=== PATIENT | male | born 2000 | race Caucasian/White ===

== ENCOUNTER 2019-01-02 19:32 | Observation (INO) | payer OTHER ==
--- NOTE | 2019-01-02 19:56 | ED ---
Palpitations / Dysrhythmia - HPI Summary HPI Summary: 18 year old F presenting to [facility] accompanied by 2 female companions with a chief complaint of fast heart rate since 1.5 hours ago while sitting at a presentation. Patient states it feels uncomfortable. Patient denies pain, shortness of breath, vomiting, swelling in bilateral lower extremities, fever. Patient reports chills that started 1 hour ago. Patient states one episode of diarrhea. Patient states he thinks he has IBS. The patient rates the pain 0/10 in severity. Symptoms aggravated by nothing. Symptoms alleviated by nothing. Patient states he had 2 cups of coffee this morning which is normal for him and drank plenty of water today. Patient denies any anxiety provoking situations today. Patient denies recent diet changes, recent travel, long car/plane rides, weight changes, thinning of his hair. 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 Medications reviewed. Allergies noted. - History of Current Complaint Chief Complaint: EDDysrhythmPalp Time Seen by Provider: 01/02/19 19:49 Hx Obtained From: Patient Onset/Duration: Lasting Hours - 1.5, Still Present Timing: Constant Severity Currently: None Character: Fast Aggravating: Nothing Alleviating: Nothing - Allergy/Home Medications Allergies/Adverse Reactions: Allergies Allergy/AdvReac Type Severity Reaction Status Date / Time No Known Allergies Allergy Verified 01/02/19 19:38 Home Medications: Home Medications NK [No Home Medications Reported] 01/02/19 [History Confirmed 01/02/19] PMH/Surg Hx/FS Hx/Imm Hx Endocrine/Hematology History: Denies: Hx Diabetes Infectious Disease History: No Infectious Disease History: Denies: Traveled Outside the [place] in Last 30 Days Review of Systems Positive: Chills. Negative: Fever Positive: Other - fast heart rate Negative: Shortness Of Breath Positive: Diarrhea - x1. Negative: Vomiting Musculoskeletal: Negative - swelling in the bilateral lower extremities All Other Systems Reviewed And Are Negative: Yes Physical Exam - Summary Physical Exam Summary: Constitutional: Well-developed, Well-nourished, Alert. (-) Distressed Skin: Warm, Dry HENT: Normocephalic; Atraumatic Eyes: Conjunctiva normal Neck: Musculoskeletal ROM normal neck. (-) JVD, (-) Stridor, (-) Tracheal deviation Cardio: Rhythm regular, tachycardic, Heart sounds normal; Intact distal pulses; The pedal pulses are 2+ and symmetric. Radial pulses are 2+ and symmetric. (-) Murmur Pulmonary/Chest wall: Effort normal. (-) Respiratory distress, (-) Wheezes, (-) Rales Abd: Soft, (-) tenderness, (-) Distension, (-) Guarding, (-) Rebound Musculoskeletal: (-) Edema Lymph: (-) Cervical adenopathy Neuro: Alert, Oriented x3 Psych: Mood and affect Normal Triage Information Reviewed: Yes Vital Signs On Initial Exam: Initial Vitals Temp Pulse Resp BP Pulse Ox 99.2 F 137 18 147/105 100 01/02/19 19:34 01/02/19 19:34 01/02/19 19:34 01/02/19 19:34 01/02/19 19:34 Vital Signs Reviewed: Yes Diagnostics - Vital Signs Vital Signs Temp Pulse Resp BP Pulse Ox 01/02/19 19:34 99.2 F 137 18 147/105 100 - Laboratory Result Diagrams: 01/02/19 20:10 01/02/19 20:10 Lab Statement: Any lab studies that have been ordered have been reviewed, and results considered in the medical decision making process. - EKG 1942 Cardiac Rate: Tachycardia - 127 BPM EKG Rhythm: Sinus Tachycardia Re-Evaluation - Re-Evaluation First Eval Re-Evaluation Time: 21:05 Comment: patient is still tachycardic, HR in the 120s. he is almost done with 1 L fluids. still waiting for TSH. will order second liter of fluids Course/Dx - Course Course Of Treatment: Patient is here with unexplained tachycardia. Patient felt palpitations also meaning lecture at school. Patient had a CBC which showed no anemia, normal TSH, normal electrolytes, negative troponin, negative d -dimer, negative lactate. Patient had negative UDS for drug intoxication. Patient's EKG showed sinus tachycardia with no improvements after 2 L of IV fluids. Cardio was consultative help perform an echocardiogram the morning. - Diagnoses Provider Diagnoses: Tachycardia - Physician Notifications Discussed Care Of Patient With: Nidhi Fishman Time Discussed With Above Provider: 21:48 Instructed by Provider To: Other - Dr. Fishman, cardiology, recommends checking urine drug screen and states it could be pheochromocytoma. She states that patient does not need admission if he continues to be asymptomatic. Spoke with Dr. Villanueva, hospitalist, at 23:52, who agrees to admit patient. Discharge ED - Sign-Out/Discharge Documenting (check all that apply): Patient Departure - Admit Patient Received Moderate/Deep Sedation with Procedure: No - Discharge Plan Condition: Stable Disposition: ADMITTED TO [facility] - Billing Disposition and Condition Condition: STABLE Disposition: Admitted to [facility] - Attestation Statements Document Initiated by Carmelitae: Yes Documenting Scribe: Juju Alberts Provider For Whom Sridhar is Documenting (Include Credential): Matt Jasso MD Scribe Attestation: IJuju, scribed for Matt Jasso MD on 01/03/19 at 0731. Scribe Documentation Reviewed: Yes Provider Attestation: The documentation as recorded by the scribeJuju accurately reflects the service I personally performed and the decisions made by me, Matt Jasso MD Status of Scribe Document: Viewed
[2019-01-02] MEDS ORDERED: NS 0.9% 1000 ML** 1,000 ML IV ONE ×2 (19:57→21:05)
[2019-01-02 20:17] LABS: ABS Eosinophils 0.1 10^3/ul (0-0.6); ABS Lymphocytes 0.9 10^3/ul (1.0-4.8); ABS Monocytes 0.5 10^3/ul (0-0.8); ABS Neutrophils 7.7 10^3/ul (1.5-7.7); Eosinophil % 0.6 %; Hematocrit 43 % (42-52); Hemoglobin 15.4 g/dL (14.0-18.0); Lymphocyte % 10.3 %; Mean Corpuscular HGB Conc 36 g/dL (31-36); Mean Corpuscular Hemoglobin 30 pg (27-31); Mean Corpuscular Volume 86 fL (80-94); Nucleated Red Blood Cells % 0.2; Platelet Count 249 10^3/uL (150-450); Red Blood Count 5.06 10^6 /uL (4.18-5.48); Red Cell Distribution Width 13 % (10-15); White Blood Count 9.2 10^3/uL (3.5-10.8)
[2019-01-02 20:34] LABS: Albumin 4.9 g/dL (3.2-5.2); Albumin/Globulin Ratio 1.8 (1-3); BUN/Creatinine Ratio 14.6 (8-20); Calcium 9.7 mg/dL (8.6-10.3); EGFR African American 133.2 (>60); EGFR Non-African American 110.1 (>60); Globulin 2.8 g/dL (2-4); Magnesium 1.9 mg/dL (1.9-2.7); Potassium 3.2 mmol/L (3.5-5.0); Total Bilirubin 0.5 mg/dL (0.2-1.0); Total Protein 7.7 g/dL (6.4-8.9)
[2019-01-02 21:06] LABS: TSH (Thyroid Stimulating Horm) 1.53 mcIU/mL (0.34-5.60)
[2019-01-02 22:54] LABS: Urine Appearance Clear; Urine Bilirubin Negative (Negative); Urine Blood Negative (Negative); Urine Color Colorless; Urine Glucose Negative (Negative); Urine Ketones Trace (Negative); Urine Nitrite Negative (Negative); Urine Protein Negative (Negative); Urine Specific Gravity 1.003 (1.010-1.030); Urine Urobilinogen Negative (Negative)
[2019-01-02 23:16] LABS: Urine Benzodiazepine Screen None Detected (None Detect); Urine Opiates Screen None Detected (None Detect)
[2019-01-03] MEDS: NS 0.9% 1000 ML** 1,000 ML IV SCH ×2 (01:50→03:15)
--- NOTE | 2019-01-03 03:19 | HP ---
ADMISSION HISTORY AND PHYSICAL: DATE OF ADMISSION: 01/03/19 CHIEF COMPLAINT: Palpitations. HISTORY OF PRESENT ILLNESS: This is a 18-year-old male with no past medical history, came in with palpitations. The patient stated that he was in his usual state of health when he had a meeting at [facility]. He was not nervous, but during the meeting all of a sudden, he started having palpitations , chills, and feeling a little lightheaded, so the friends who were present there, encouraged him to come to the ER. While in the ER, the patient was noted to be tachycardiac to 110 to 150s. He received 2 L of normal saline, but his tachycardia did not improve. The accounts receivable representative was consulted, Dr. Fishman, who suggested that the patient be admitted and observed overnight. The patient otherwise offers no chest pain. He states that he did have some burping sensation along with the palpitations. No shortness of breath, no nausea, vomiting. He did have an episode of loose bowel movement this morning, which he calls as his irritable bowel syndrome and he was noted to be persistently tachycardiac throughout the 5 hours that he was present in the ER before my evaluation. Even during my evaluation, the patient's heart rate was noted to be fluctuating anywhere from 104 to 110. PAST MEDICAL HISTORY: As mentioned, no past medical or surgical history. HOME MEDICATIONS: Currently not on any home medications. ALLERGIES: No known drug allergies. FAMILY HISTORY: Mom is in her 49 and dad is in his 50, otherwise healthy. Grandmother on mother's side had some lymphoma and . Grandfather on mother' s side was recently diagnosed with diabetes, but otherwise the rest of his grandparents were healthy. There was no history of any abnormal heart disease or early sudden cardiac in the family. REVIEW OF SYSTEMS: A 14-point review of systems did not reveal any new information other than what is mentioned in the HPI PHYSICAL EXAMINATION GENERAL: The patient is awake, alert, oriented x3, did not appear to be in any acute respiratory distress. The patient does have some marfanoid features. He is very tall and very skinny. VITAL SIGNS: In the ER, heart rate since arrival was noted to be anywhere from 130 to 109 on the vital signs. BP initially was elevated to as high as 161 systolic and diastolic as high as 124, but did improve to 123/93 during my evaluation. Respiration rate was 13, saturating 98% on room air. Temperature was documented at 99.2. HEAD AND NECK: Atraumatic, normocephalic. Neck is supple. No jugular venous distention LUNGS: Clear to auscultation bilaterally. No wheezing, rhonchi, or rales. HEART: S1, S2. Regular tachycardia . ABDOMEN: Soft, nontender, nondistended. EXTREMITIES: No cyanosis, clubbing, or edema. DIAGNOSTIC STUDIES/LAB DATA: CBC was unremarkable. D-dimer was less than 200. Comprehensive metabolic panel was unremarkable except for minimally decreased potassium at 3.2, glucose noted to be minimally elevated at 123. Magnesium was noted to be 1.9. Alkaline phosphatase minimally elevated at 108. Troponin was 0. Urinalysis showed low specific gravity, trace ketones, but otherwise clear. Urine drug screen was normal. EKG showed sinus tachycardia at 127 beats per minute with rate-induced ST depressions noted in the lateral lead. IMPRESSION: This is an 18-year-old gentleman here with persistent sinus tachycardia, now down to low 100s, which is much better than when he arrived at the 150s. Could be due to dehydration, but the etiology is still uncertain. Per accounts receivable representative, we will monitor the patient on telemetry. ASSESSMENT: 1. Persistent sinus tachycardia, unclear etiology. We will get an echocardiogram in the morning and we will consult Cardiology to evaluate the patient. Any further testing to rule out secondary causes such as pleochromocytoma could be considered if the patient did have any persistent blood pressure elevations with the tachycardia with the urine catecholamines, but at this point this is low in suspicion. The patient did state that he has been having tachycardia every time he visits his doctor's office, but was told that it is because he feels nervous around the doctors. 2. DVT prophylaxis. Encourage early ambulation. [id number]/[facility] #: [id number] MAY
[2019-01-03 07:28] LABS: ABS Lymphocytes 1.2 10^3/ul (1.0-4.8); ABS Monocytes 0.5 10^3/ul (0-0.8); ABS Neutrophils 4.8 10^3/ul (1.5-7.7); Eosinophil % 0.5 %; Hematocrit 43 % (42-52); Hemoglobin 14.8 g/dL (14.0-18.0); Lymphocyte % 18.1 %; Mean Corpuscular HGB Conc 34 g/dL (31-36); Mean Corpuscular Hemoglobin 30 pg (27-31); Mean Corpuscular Volume 87 fL (80-94); Mean Platelet Volume 8.4 fL (7.4-10.4); Platelet Count 231 10^3/uL (150-450); Red Blood Count 4.95 10^6 /uL (4.18-5.48); Red Cell Distribution Width 13 % (10-15); White Blood Count 6.6 10^3/uL (3.5-10.8)
[2019-01-03 07:49] LABS: BUN/Creatinine Ratio 9.5 (8-20); EGFR African American 164.9 (>60); EGFR Non-African American 136.3 (>60); Potassium 3.5 mmol/L (3.5-5.0)
--- NOTE | 2019-01-03 10:41 | ECHO ---
*[facility]* [place] [address] Fax #: [phone] Transthoracic Echocardiogram Patient: Dale Adler : 2000 Study Date: 01/03/2019 Age: 18 Gender: M HR: Height: 72 in /182.9 cm BSA: 1.83 m^2 Weight: 139.7 lb /63.5 kg BMI: 19 kg/m^2 *Size Maker: * Zoila Turcios [facility] *Referring Physician: * Orlando Villanueva *Reading Physician: * Yassine Jaime MD Indications: Abnormal EKG. Tachycardia. History: Tachycardia. Conclusions Summary: - Left ventricle: The cavity size is normal. Wall thickness is normal. Systolic function is normal. The estimated ejection fraction is 60-65%. Wall motion is normal; there are no regional wall motion abnormalities. - Right ventricle: The cavity size is normal. Systolic function is normal. - Left atrium: The atrium is normal in size. - Pericardium, extracardiac: There is no significant pericardial effusion. - No significant valvular abnormalities noted. Recommendations: None prior for comparison at time of interpretation Study data: Transthoracic echocardiogram. Procedure: Transthoracic echocardiography was performed. Image quality was good. Complete 2D, spectral Doppler, and color flow Doppler. Location: Bedside. Patient status: Inpatient. Patient room number: 444-01. Rhythm: Tachycardia. Findings Left ventricle: The cavity size is normal. Wall thickness is normal. Systolic function is normal. The estimated ejection fraction is 60-65%. Wall motion is normal; there are no regional wall motion abnormalities. Left ventricular diastolic function parameters are normal. Right ventricle: The cavity size is normal. The moderator band is in a normal position. Systolic function is normal. Left atrium: The atrium is normal in size. Right atrium: The atrium is normal in size. Mitral valve: The leaflets are mildly thickened. There is no evidence of stenosis. There is trace regurgitation. Aortic valve: The valve is trileaflet. The leaflets are normal thickness. There is no evidence of stenosis. There is no significant regurgitation. Tricuspid valve: The leaflets are normal thickness. There is no evidence of stenosis. There is physiologic regurgitation. Pulmonic valve: The leaflets are normal thickness. There is no evidence of stenosis. There is trace regurgitation. Aorta: Aortic root: The aortic root is appears normal. Ascending aorta: The ascending aorta is appears normal. Aortic arch: The aortic arch is appears normal. Pericardium: There is no significant pericardial effusion. Pulmonary arteries: The main pulmonary artery is normal-sized. Systolic pressure can not be accurately estimated. Systemic veins: Inferior vena cava: The vessel is normal in size. There is (>= 50%) respiratory change in the IVC dimension. Measurements Left ventricle Value Ref Aortic valve Value Ref JOYCE, LAX 4.2 cm 4.2 - 5.8 Eliot diam, ED 2.0 cm ---- ESD, LAX 3.0 cm 2.5 - 4.0 Peak v, S 1.25 m/sec ---- FS, LAX 28 % - 43 VTI, S 22.1 cm ---- PW, ED, LAX 0.9 cm 0.6 - 1.0 Mean grad, S 4.0 mm Hg ---- FS 28 % - 43 Peak grad, S 6.0 mm Hg ---- PW, ED 0.9 cm 0.6 - 1.0 LVOT/AV, VTI ratio 0.77 ---- PW/ID, ED 0.22 E', lat eliot, TDI 17.3 cm/sec >=10.0 Mitral valve Value Re f E/e', lat eliot, 5 Peak E 0.81 m/sec ---- TDI Peak A 0.73 m/sec ---- E', med eliot, TDI 13.6 cm/sec >=7.0 Decel time 143 ms -- -- E/e', med eliot, 6 Peak grad, D 2.6 mm Hg ---- TDI Peak E/A ratio 1.1 ---- E', avg, TDI 15.5 cm/sec E/e', avg, TDI 5 <=14 Pulmonic valve Value Re f Peak v, S 0.99 m/sec ---- LVOT Value Ref Peak grad, S 4.0 mm Hg ---- Peak nela, S 1.03 m/sec VTI, S 17.0 cm Aortic root Value Ref Mean grad, S 2 mm Hg Root diam 3.0 cm <3.2 Root max diam, ED 3.0 cm <3.2 Ventricular septum Value Ref IVS, ED 0.9 cm 0.6 - 1.0 Ascending aorta Value Ref AAo AP diam, S 3.0 cm ---- Right ventricle Value Ref JOYCE, LAX 2.7 cm Aortic arch Value Ref JOYCE minor ax, A4C (H) 3.6 cm 1.9 - 3.5 Arch diam 1.7 cm ---- mid Decending aorta Value Ref Left atrium Value Ref Isaak peak nela 1.31 m/sec ---- AP dim, ES (L) 2.80 cm 3.00 - 4.00 Inferior vena cava Value Ref ML dim, A4C 2.7 cm Diam 1.8 cm ---- SI dim, A4C 3.9 cm Vol/bsa, ES, 1-p (L) 9 ml/m^2 12 - 37 A4C Vol/bsa, ES, A/L 19 ml/m^2 16 - 34 Right atrium Value Ref SI dim, ES (L) 3.3 cm 3.4 - 5.3 ML dim, ES, A4C 2.6 cm 2.6 - 4.4 SI dim, ES, A4C (L) 3.3 cm 3.4 - 5.3 Estimated RAP 3 mm Hg Legend: (L) and (H) aldo values outside specified reference range. Prepared and electronically signed by Yassine Jaime MD 01/03/2019 10:40
--- NOTE | 2019-01-03 12:15 | CONSULT ---
Subjective Date of Service: 01/03/19 Interval History: Admission and consult Date: 01/03/19 CHIEF COMPLAINT: Palpitations Reason for consult: Sinus tachycardia HISTORY OF PRESENT ILLNESS: Mr. Adler is 18-year-old man admitted with palpitations found with persistent sinus tachycardia throughout the day and high normal when sleeping. His heart rate can go up to 140 bpm when someone walks in the room. His evaluations so far has been unrevealing as below. He has had issues with tachycardia and anxiety in the past but states he is not currently anxious. He denies any chest pain, dyspnea, or syncope. Patients BP has been high and K was initially low. PAST MEDICAL HISTORY: no past medical or surgical history. HOME MEDICATIONS: Currently not on any home medications. ALLERGIES: No known drug allergies. FAMILY HISTORY: Mom is in her 49 and dad is in his 50, otherwise healthy. Grandmother on mother's side had some lymphoma and . Grandfather on mother's side was recently diagnosed with diabetes, but otherwise the rest of his grandparents were healthy. There was no history of any abnormal heart disease or early sudden cardiac in the family. Soc Hx no tobacco, drug or excessive alcohol use. No excessive caffeine. 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 Medications Active Medications: Metoprolol Tartrate (Lopressor Tab*) 25 mg PO BID EULA Home Medications: NK [No Home Medications Reported] 01/02/19 [History Confirmed 01/02/19] Review of Systems - Measurements Intake and Output: Intake and Output Last 24 Hours 01/01/19 01/02/19 01/03/19 01/04/19 06:59 06:59 06:59 06:59 Intake Total 4991 Balance 4991 Weight 137 lb Intake: IV Fluids 4991 Oral 0 - Review of Systems Constitutional Symptoms: Negative: Weight Gain, Weight Loss, Weakness, Fatigue, Fever, Night Sweats Dermatology: Negative: Rash, Skin Lesions HEENT: Negative: Change in Hearing, Vertigo Eyes: Negative: Change in Vision, Double Vision Thyroid: Positive: Palpitations Negative: Radiation Exposure Pulmonary: Negative: Cough, Sputum, Hemoptysis, Wheezing, Respiratory Distress, Shortness of Breath, COPD Cardiology: Positive: Palpitations Negative: Chest Pain, Shortness of Breath, Swelling of Ankles, Peripheral Vascular Dis, Edema, Syncope, Claudication, Paroxysmal Nocturnal Dyspnea, Orthopnea Gastroenterology: Negative: Abdominal Pain, Nausea, Vomiting, Anorexia Genital - Urinary: Negative: Dysuria, Hematuria Musculoskeletal: Negative: Joint Pain, Joint Stiffness, Joint Deformities, Kyphoscoliosis, Other Endocrinology: Negative: Polydipsia, Polyuria Hematologic/Lymphatic: Negative: Use of Anticoagulant, Use of Antiplatelet Drugs Neurology: Negative: Change in Speech, Change in Sphincter Function, Hx of Stroke\\TIA, Hx Seizures Psychiatry: Negative: Unusual Anxiety, Suicidal Ideation Allergic/Immunologic: Negative: Hx HIV, Immunocompromise Review of Systems Statement: All other review of systems negative, unless stated above. Objective Vital Signs: Temp Pulse Resp BP Pulse Ox 99.0 F 124 20 143/82 100 01/03/19 07:34 01/03/19 07:34 01/03/19 07:34 01/03/19 07:34 01/03/19 07:34 Oxygen Devices in Use Now: None Appearance: nad, pleasant Ears/Nose/Mouth/Throat: Clear Oropharnyx Neck: NL Appearance and Movements; NL JVP, Trachea Midline Respiratory: Symmetrical Chest Expansion and Respiratory Effort, Clear to Auscultation Cardiovascular: NL Sounds; No Murmurs; No JVD, No Edema, - - tachyardic, regular Abdominal: NL Sounds; No Tenderness; No Distention Extremities: No Edema Skin: No Rash or Ulcers Neurological: Alert and Oriented x 3 Laboratory Results: 01/03/19 06:34 01/03/19 06:34 Total Bilirubin 0.50 mg/dL (0.2-1.0) 01/02/19 20:10 AST 18 U/L (13-39) 01/02/19 20:10 ALT 10 U/L (7-52) 01/02/19 20:10 Alkaline Phosphatase 107 U/L (34-104) H 01/02/19 20:10 Total Protein 7.7 g/dL (6.4-8.9) 01/02/19 20:10 Albumin 4.9 g/dL (3.2-5.2) 01/02/19 20:10 Globulin 2.8 g/dL (2-4) 01/02/19 20:10 Albumin/Globulin Ratio 1.8 (1-3) 01/02/19 20:10 TSH 1.53 mcIU/mL (0.34-5.60) 01/02/19 20:10 01/02/19 20:10 Troponin I 0.00 d-dimer normal tox screen normal Diagnostic Imaging: Transthoracic Echocardiogram Study Date: 01/03/2019 Summary: - Left ventricle: The cavity size is normal. Wall thickness is normal. Systolic function is normal. The estimated ejection fraction is 60-65%. Wall motion is normal; there are no regional wall motion abnormalities. - Right ventricle: The cavity size is normal. Systolic function is normal. - Left atrium: The atrium is normal in size. - Pericardium, extracardiac: There is no significant pericardial effusion. - No significant valvular abnormalities noted. EKG Data: ekg admission sinus tachycardia 127 bpm, otherwise unremarkable Assessment/Plan Tachycardia symptomatic, heart rate trends suggestive of physiologic sinus mechanism, possible anxiety component. I would like to check renin, aldosterone , plasma metanephrines (do not need to wait for results to discharge) and a chest x-ray (all ordered). Will start metoprolol 25 mg po bid (ordered), monitor and patient can be discharged later this afternoon. Will arrange cardiology follow up. If these studies are normal and patient remains symptomatic/tachycardia, will consider off-label ivabradine for "inappropriate" sinus tachycardia as an outpatient. Thank you for allowing me to participate in the cardiovascular care of this patient. Please do not hesitate to contact me with questions or concerns.
[2019-01-03] MEDS ORDERED: Metoprolol Tartrate TAB* 25 MG PO SCH (13:00)
[2019-01-03] MEDS ORDERED: NS 0.9% 250 ML* 250 ML IV SCH (13:00)
--- NOTE | 2019-01-03 16:29 | DS ---
DISCHARGE SUMMARY: DATE OF ADMISSION: 01/03/19 DATE OF DISCHARGE: 01/03/19 PRIMARY DIAGNOSES: 1. Sinus tachycardia. 2. Anxiety. 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 Please refer to the dictated history and physical for details, but zoila harkins was in his usual state of health and had a meeting at the [facility]. During the meeting, he started having palpitations, chills, feeling lightheaded and the patient in the ER was noted to b e tachycardic with a heart rate of 110 to 150s. The patient had 1 episode of diarrhea in the hospita l, however, has been having formed stools and had been afebrile through hospital stay. Denies any si ck contacts. The patient's heart rate was persistently elevated overnight. The patient was hydrated overnight to rule out dehydration, which could have triggered his physiologic sinus tach. With hydr ation, the patient's heart rate currently is improved and heart rate noted to be in the 90s. The pat ient also was monitored on telemetry overnight and the patient only noted to be in sinus tach with no evidence of ventricular arrhythmias or SVT, the patient had an echocardiogram done, which shows that his ejection fraction is in the 60% to 65% range, systolic function normal. Wall motion normal. No regional wall abnormalities. No significant valvular abnormalities noted. The patient was also seen in consult by Dr. Jaime and appreciate his input. He felt that the heart rate runs suggestive of p hysiologic sinus mechanism and possibly anxiety component. At this time, renin, aldosterone, plasma metanephrines have been drawn and are pending. The patient to follow up results of this with his pro vider at [employer] to rule out pheochromocytoma and hyperaldosteronism. The patient was started on met oprolol 25 mg p.o. b.i.d.. The patient tolerated his first dose well and the patient to continue his metoprolol to held with his symptoms. Per discussion with Dr. Jaime, if the patient remains sympto matic with his tachycardia and the studies come back normal, off-label use of Ivabradine for inapprop riate sinus tachycardia can also be considered, but this per discretion of Dr. Jaime as an outpatien t and the patient to follow up with him post discharge in 2 weeks. Vitals and labs noted to be stabl e at the time of discharge. The patient to be discharged later in the afternoon. PHYSICAL EXAMINATION: Vitals: At the time of discharge, temperature 99.5, pulse 114, respiratory ra te 20, oxygen saturation 100% on room air, blood pressure 151/86. HEENT: NCAT. Heart: S1, S2 pres ent. Regular at the time of exam. Tachycardiac. Lungs: Clear to auscultation bilaterally. Abdomen : Soft. Extremities: No edema. Neuro: Alert, oriented. MEDICATION LIST: Please find attached. DIAGNOSTIC STUDIES/LAB DATA: Chest x-ray, no active cardiopulmonary disease. Echocardiogram as discu ssed above. EKG with sinus tachycardia. Renin, lorne, and plasma metanephrines are pending. MEDICATIONS AT THE TIME OF DISCHARGE: Metoprolol 25 mg p.o. b.i.d. INSTRUCTIONS: 1. The patient to follow up with his PCP at [employer] in 1 week. 2. The patient to follow up with Dr. Jaime as an outpatient. 3. The patient to avoid excessive coffee use. 4. The patient to follow up on results of pending lab test. TIME SPENT: Total time spent on discharge is equal to 45 minutes. [id number]/[facility] #: [id number]
[2019-01-03 16:48] VITALS: BP 135/70
[2019-01-05 13:31] LABS: Plasma Free Metanephrine 0.29 nmol/L (<0.50); Plasma Free Normetanephrine 0.22 nmol/L (<0.90)
--- NOTE | 2019-01-24 21:48 | DS ---
DISCHARGE SUMMARY: ADDENDUM: DATE OF DISCHARGE: 01/03/19 CONDITION AT DISCHARGE: Stable. DISPOSITION: Discharged home. [id number]/[facility] #: [id number] [facility]
== END 2019-01-03 17:26 | disposition home or self-care (01) ==
LOC: ED 19:32 → MEDTELE 01-03 01:29
PROVIDERS: ADMIT Internal Medicine; ATTEND Internal Medicine
DX: R00.0 Tachycardia, unspecified (principal); F41.9 Anxiety disorder, unspecified; R00.2 Palpitations; R19.7 Diarrhea, unspecified
CPT/HCPCS: 36415; 71046; 80048; 80053; 80307; 81003; 82088; 83605; 83735; 83835; 84244; 84443; 84484; 85025; 85379; 93005; 93306; 96360; 96361; 99284; G0378

== ENCOUNTER 2019-01-08 17:39 | Emergency (ER) | payer OTHER ==
[2019-01-08] MEDS ORDERED: NS 0.9% 1000 ML** 1,000 ML IV ONE (19:14)
--- NOTE | 2019-01-08 19:31 | ED ---
HPI Chest Pain - HPI Summary HPI Summary: 18 year old M presenting to [facility] complains of chest pain described as sore and pressure with associated tingliness and numbness in his left arm, generalized weakness, and left-sided neck tightness since 14:00 today. Patient denies nausea , vomiting, abdominal pain, recent weight change. Symptoms aggravated by nothing. Symptoms alleviated by nothing. Patient was diagnosed with tachycardia last Monday01/02/19. Patient states he had palpitations last Monday, was seen at [facility], and was sent to the ED. Patient states he was admitted, had blood work, a chest x-ray, and an echo done all of which were negative. Patient states he was discharged 01/03/19 evening with metoprolol 25 mg twice a day. Patient states he took it this morning and has not taken it tonight. Denies hx palpitations. Patient states he has not been exerting himself. Denies caffeine, supplements. States he has been taking gummy vitamins. - History of Current Complaint Chief Complaint: EDChestPainROMI Time Seen by Provider: 01/08/19 19:10 Hx Obtained From: Patient Onset/Duration: Started Hours Ago - 14:00, Still Present Current Severity: None Pain Intensity: 0 Pain Scale Used: 0-10 Numeric Character: Pressure/Squeezing, Other: - sore Aggravating Factor(s): Nothing Alleviating Factor(s): Nothing Associated Signs and Symptoms: Positive: Negative - nausea, vomiting, abdominal pain, recent weight change, Other: - tingliness and numbness in his left arm, generalized weakness, and left-sided neck tightness - Additional Pertinent History Primary Care Physician: [id number] - Allergy/Home Medications Allergies/Adverse Reactions: Allergies Allergy/AdvReac Type Severity Reaction Status Date / Time No Known Allergies Allergy Verified 01/08/19 18:54 PMH/Surg Hx/FS Hx/Imm Hx Endocrine/Hematology History: Denies: Hx Diabetes Cardiovascular History: Denies: Hx Peripheral Vascular Disease Sensory History: Denies: Hx Cataracts, Hx Contacts or Glasses, Hx Eye Injury, Hx Eye Prosthesis, Hx Glaucoma, Hx Legally Blind, Hx Macular Degeneration, Hx Vision Problem, Hx Deafness, Hx Hearing Aid, Hx Hearing Problem, Other Sensory Impairments Opthamlomology History: Denies: Hx Cataracts, Hx Contacts or Glasses, Hx Eye Injury, Hx Eye Prosthesis, Hx Glaucoma, Hx Legally Blind, Hx Macular Degeneration, Hx Vision Problem, Other Sensory Impairments Neurological History: Denies: Hx Seizures, Hx Transient Ischemic Attacks (TIA) - Surgical History Surgery Procedure, Year, and Place: None Infectious Disease History: No Infectious Disease History: Denies: Traveled Outside the [place] in Last 30 Days - Family History Known Family History: Positive: Diabetes, Other - lymphoma - Social History Alcohol Use: None Hx Substance Use: No Substance Use Type: Reports: None Hx Tobacco Use: No Smoking Status (MU): Never Smoked Tobacco Review of Systems - ROS Summary Review of Systems Summary: Home Medications Medication Instructions Recorded Confirmed Type Metoprolol Tartrate TAB* 25 mg PO BID #60 tab 01/03/19 01/08/19 Rx [Lopressor TAB*] Constitutional: Negative - recent weight change Positive: Chest Pain Negative: Abdominal Pain, Vomiting, Nausea Neurological: Negative - tingliness and numbness in his left arm, generalized weakness, and left-sided neck tightness All Other Systems Reviewed And Are Negative: Yes Physical Exam - Summary Physical Exam Summary: General: Tall and thin MALE. No acute distress. HEENT: Normocephalic, Atraumatic. Eyes: Conjuctiva normal, PERRL. Ears: TMs within normal limits. Nares: (-) discharge, (-) erythema. Oropharynx: Clear, mucous membranes moist, (-) exudates. Neck: Soft, FROM, (-) lymphadenopathy, (-) thyromegaly, (-) JVD. Cardiovascular: Normal sinus rhythm, (-) murmur. Lungs: Clear to auscultation bilaterally (-) wheezes, (-) rales, (-) rhonchi. Abdomen: Soft, non-tender, non-distended, (-) organomegaly, normal bowel sounds. Back: (-) CVA tenderness Extremities: No edema. Skin: Warm, dry, (-) rash. Neuro: Alert and oriented x3, no focal deficits. Psychiatric: Mood normal, affect is flat. Triage Information Reviewed: Yes Vital Signs On Initial Exam: Initial Vitals Temp Pulse Resp BP Pulse Ox 98.3 F 109 17 153/82 100 01/08/19 18:00 01/08/19 18:00 01/08/19 18:00 01/08/19 18:00 01/08/19 18:00 Vital Signs Reviewed: Yes Diagnostics - Vital Signs Vital Signs Temp Pulse Resp BP Pulse Ox 01/08/19 19:00 104 14 98 01/08/19 18:50 107 10 142/91 98 01/08/19 18:48 101 100 01/08/19 18:00 98.3 F 109 17 153/82 100 - Laboratory Result Diagrams: 01/08/19 19:48 01/08/19 19:48 Lab Statement: Any lab studies that have been ordered have been reviewed, and results considered in the medical decision making process. - Radiology CXR Radiology Interpretation Completed By: ED Physician Summary of Radiographic Findings: within normalal limits. no signs of pneumonia , pleural effusion, or pneumothorax. pending official report - EKG 1742 Cardiac Rate: Tachycardia - 107 BPM EKG Rhythm: Sinus Tachycardia Summary of EKG Findings: EKG at 17:42 reveals sinus tachycardia with rate of 107 BPM, no acute changes, no ischemic changes. Non STEMI. This EKG was reviewed and interpreted by Dr. Zayas. Re-Evaluation - Re-Evaluation First Eval Re-Evaluation Time: 21:19 Change: Improved Comment: I have discussed results with the patient and his symptoms are resolved. Discussed symptoms that warrant immediate return to ED. Chest Pain Course/Dx - Course Course Of Treatment: 18 year old M presenting to [facility] complains of chest pain described as sore and pressure with associated tingliness and numbness in his left arm, generalized weakness, and left-sided neck tightness since 14:00 today. Patient denies nausea, vomiting, abdominal pain, recent weight change. Symptoms aggravated by nothing. Symptoms alleviated by nothing. Patient was diagnosed with tachycardia last Monday01/02/19. Patient states he had palpitations last Monday01/02/19, was seen at [facility], and was sent to the ED. Patient states he was admitted, had blood work, a chest x-ray, and an echo done all of which were negative. Patient states he was discharged 01/03/19 evening with metoprolol 25 mg twice a day. Patient states he took it this morning and has not taken it tonight. Denies hx palpitations. Patient states he has not been exerting himself. Denies caffeine, supplements. States he has been taking gummy vitamins. Physical exam findings: Tall and thin MALE whose affect is flat. EKG at 17:42 reveals sinus tachycardia with rate of 107 BPM, no acute changes, no ischemic changes. Non STEMI. This EKG was reviewed and interpreted by Dr. Zayas. CXR is within normalal limits, there are no signs of pneumonia, pleural effusion, or pneumothorax. Bloodwork results with no significant abnormalities except for absolute neuts 9.2, absolute lymphs 0.7, INR 1.11, glucose 133. Urinalysis results with no significant abnormalities except for specific gravity 1.009. Toxicology results with no significant abnormalities. In the ED course, the patient was given Lopressor 25 mg PO and normal saline fluids 1 L IV. The patient feels better and would like to go home. Patient will be discharged home with follow up from [facility] in 3 days. Patient was instructed to return to Emergency Department for new or worsening symptoms. Patient understands and is agreeable to this plan. - Diagnoses Provider Diagnoses: Tachycardia, Palpitations Discharge ED - Sign-Out/Discharge Documenting (check all that apply): Patient Departure - Discharge Patient Received Moderate/Deep Sedation with Procedure: No - Discharge Plan Condition: Stable Disposition: HOME Patient Education Materials: Heart Palpitations (ED), Tachycardia (ED) Referrals: [facility] [Provider Group] - 3 Days Additional Instructions: Please follow up with [facility] within 3 days. Please return to Emergency Department for any new or worsening symptoms. - Billing Disposition and Condition Condition: STABLE Disposition: Home - Attestation Statements Document Initiated by Scribe: Yes Documenting Scribe: Juju Alberts Provider For Whom Sridhar is Documenting (Include Credential): Sendy Zayas MD Scribe Attestation: Juju Phillips, scribed for Sendy Zayas MD on 01/09/19 at 0041. Scribe Documentation Reviewed: Yes Provider Attestation: The documentation as recorded by the Juju pierre accurately reflects the service I personally performed and the decisions made by me, Sendy Zayas MD Status of Scribe Document: Viewed
[2019-01-08 19:58] LABS: Urine Appearance Clear; Urine Bilirubin Negative (Negative); Urine Blood Negative (Negative); Urine Color Straw; Urine Glucose Negative (Negative); Urine Ketones Negative (Negative); Urine Nitrite Negative (Negative); Urine Protein Negative (Negative); Urine Specific Gravity 1.009 (1.010-1.030); Urine Urobilinogen Negative (Negative)
[2019-01-08 20:04] LABS: ABS Lymphocytes 0.7 10^3/ul (1.0-4.8); ABS Monocytes 0.4 10^3/ul (0-0.8); ABS Neutrophils 9.2 10^3/ul (1.5-7.7); Eosinophil % 0.3 %; Hematocrit 43 % (42-52); Hemoglobin 15.2 g/dL (14.0-18.0); Mean Corpuscular HGB Conc 35 g/dL (31-36); Mean Corpuscular Hemoglobin 30 pg (27-31); Mean Corpuscular Volume 86 fL (80-94); Mean Platelet Volume 7.9 fL (7.4-10.4); Platelet Count 260 10^3/uL (150-450); Red Blood Count 5.04 10^6 /uL (4.18-5.48); Red Cell Distribution Width 13 % (10-15); White Blood Count 10.4 10^3/uL (3.5-10.8)
[2019-01-08] MEDS ORDERED: Metoprolol Tartrate TAB* 25 MG PO ONE (20:07)
[2019-01-08 20:15] LABS: Urine Benzodiazepine Screen None Detected (None Detect); Urine Opiates Screen None Detected (None Detect)
[2019-01-08 20:21] LABS: INR 1.11 (0.82-1.09)
[2019-01-08 20:23] LABS: ALT 13 U/L (7-52); AST 16 U/L (13-39); Albumin 4.7 g/dL (3.2-5.2); Albumin/Globulin Ratio 1.5 (1-3); Alkaline Phosphatase 102 U/L (34-104); Anion Gap 7 mmol/L (2-11); BUN/Creatinine Ratio 16.7 (8-20); Blood Urea Nitrogen 13 mg/dL (6-24); CO2 Carbon Dioxide 31 mmol/L (22-32); Calcium 9.6 mg/dL (8.6-10.3); Chloride 102 mmol/L (101-111); EGFR African American 155.2 (>60); EGFR Non-African American 128.2 (>60); Globulin 3.1 g/dL (2-4); Glucose 133 mg/dL (70-100); Potassium 3.7 mmol/L (3.5-5.0); Sodium 140 mmol/L (135-145); Total Protein 7.8 g/dL (6.4-8.9)
[2019-01-08 20:40] LABS: Alcohol < 10 mg/dL (<10)
[2019-01-08 20:55] LABS: TSH (Thyroid Stimulating Horm) 0.85 mcIU/mL (0.34-5.60)
[2019-01-08 21:23] VITALS: BP 139/96
== END 2019-01-08 21:23 | disposition home or self-care (01) ==
LOC: ED 17:39
DX: R00.0 Tachycardia, unspecified (principal); R00.2 Palpitations; Z79.899 Other long term (current) drug therapy
CPT/HCPCS: 36415; 71046; 80053; 80307; 80320; 81003; 83605; 84443; 84484; 85025; 85379; 85610; 93005; 96360; 96361; 99283; G0480

== ENCOUNTER 2019-01-10 15:52 | Emergency (ER) | payer OTHER ==
--- OUTSIDE RECORDS SUMMARY | 2019-01-10 16:32 | XMS REPORT | Continuity of Care Document ---
:2000 External Reference #:[id number] Author Name Re Solorio Care Team Providers Name Role Phone Bruna Croft MD - Internal Care Team Information Director Of Content And Programming Medicine Problems Description No Information Available Social History Type Date Description Comments Sex Unknown Allergies, Adverse Reactions, Alerts Description No Information Available Medications Description No Information Available Immunizations Description No Information Available Vital Signs Description No Information Available Results Description No Information Available Procedures Date Code Description Status 01/03/2019 33356 ECHO Transthorasic Realtime 2D W Doppler & Color Flow Hosp Completed Medical Devices Description No Information Available Encounters Type Date Location Provider Dx Diagnosis Office Visit 01/03/2019 [facility] Michelle Dove, R00.0 Tachycardia, 11:30a Assoc,eddy Ramirez unspecified Hospitalists Office Visit 01/03/2019 [facility] Yassine Hargrove94.31 Abnormal 8:56a Of [facility] DO BRUNO Jaime electrocardiogram [ECG] [EKG] R00.0 Tachycardia, unspecified Assessments Date Code Description Provider 01/03/2019 R00.0 Tachycardia, unspecified Michelle Dove M.D. 01/03/2019 R94.31 Abnormal electrocardiogram [ECG] [EKG] Yassine Jaime DO FACC 01/03/2019 R00.0 Tachycardia, unspecified Yassine Jaime DO FACC Plan of Treatment Future Appointment(s):01/11/2019 8:00 am - Yassine Jaime DO FACC at [facility] Functional Status Description No Information Available Mental Status Description No Information Available Referrals Description No Information Available
[2019-01-10 16:40] LABS: ABS Basophils 0.1 10^3/ul (0-0.2); ABS Eosinophils 0.1 10^3/ul (0-0.6); ABS Lymphocytes 0.9 10^3/ul (1.0-4.8); ABS Monocytes 0.5 10^3/ul (0-0.8); ABS Neutrophils 8.5 10^3/ul (1.5-7.7); Eosinophil % 0.8 %; Hematocrit 45 % (42-52); Hemoglobin 15.9 g/dL (14.0-18.0); Lymphocyte % 8.7 %; Mean Corpuscular HGB Conc 35 g/dL (31-36); Mean Corpuscular Hemoglobin 30 pg (27-31); Mean Corpuscular Volume 86 fL (80-94); Mean Platelet Volume 7.9 fL (7.4-10.4); Platelet Count 292 10^3/uL (150-450); Red Blood Count 5.27 10^6 /uL (4.18-5.48); Red Cell Distribution Width 13 % (10-15); White Blood Count 10.1 10^3/uL (3.5-10.8)
[2019-01-10 16:45] LABS: INR 1.07 (0.82-1.09)
[2019-01-10 17:00] LABS: Albumin 4.8 g/dL (3.2-5.2); Albumin/Globulin Ratio 1.5 (1-3); BUN/Creatinine Ratio 18.1 (8-20); Calcium 9.8 mg/dL (8.6-10.3); EGFR African American 144.4 (>60); EGFR Non-African American 119.4 (>60); Globulin 3.1 g/dL (2-4); Potassium 3.8 mmol/L (3.5-5.0); Total Bilirubin 0.4 mg/dL (0.2-1.0); Total Protein 7.9 g/dL (6.4-8.9)
[2019-01-10 17:31] LABS: Magnesium 2.3 mg/dL (1.9-2.7)
[2019-01-10] MEDS ORDERED: Metoprolol Tartrate TAB* 25 MG PO ONE (18:09)
--- NOTE | 2019-01-10 18:19 | ED ---
HPI Chest Pain - HPI Summary HPI Summary: This patient is a 18 year old M presenting to [facility] accompanied by female friend and male friend with a chief complaint of chest palpations and chest pain since 1605. Patient states that he was previously seen here in the ED on and on 01/08/19. Patient states that he was Dx with tachycardia. Patient states he had followed up with Dr. Tapia at [facility] today. Patient states that Dr. Tapia preformed an EKG which was thought to be WPW. Patient states that he was then sent here for a follow up EKG. Patient characterizes the CP as aching. The patient rates the pain 0/10 in severity. Symptoms aggravated by nothing. Symptoms alleviated by nothing. Patient reports body aches, chills, fatigue. Patient denies fever. Patient denies any past SHx. Patient states he last took his metoprolol at 0830. Allergies Allergy/AdvReac Type Severity Reaction Status Date / Time No Known Allergies Allergy Verified 01/08/19 18:54 Home Medications Medication Instructions Recorded Confirmed Type Metoprolol Tartrate TAB* 25 mg PO BID #60 tab 01/03/19 01/10/19 Rx [Lopressor TAB*] Patient Problems Sinus tachycardia (Acute) - History of Current Complaint Chief Complaint: EDDysrhythmPalp Time Seen by Provider: 01/10/19 17:57 Hx Obtained From: Patient Onset/Duration: Started Minutes Ago - 1605 Timing: Constant Current Severity: None Pain Intensity: 0 Pain Scale Used: 0-10 Numeric Chest Pain Location: Discrete at:, Left Anterior Chest Pain Radiates: No Character: Dull/Aching Aggravating Factor(s): Nothing Alleviating Factor(s): Nothing Associated Signs and Symptoms: Positive: Chest Pain, Chills, Palpitations. Negative: Fever - Additional Pertinent History Primary Care Physician: [id number] - Allergy/Home Medications Allergies/Adverse Reactions: Allergies Allergy/AdvReac Type Severity Reaction Status Date / Time No Known Allergies Allergy Verified 01/08/19 18:54 PMH/Surg Hx/FS Hx/Imm Hx Endocrine/Hematology History: Denies: Hx Diabetes Cardiovascular History: Denies: Hx Peripheral Vascular Disease Sensory History: Denies: Hx Cataracts, Hx Contacts or Glasses, Hx Eye Injury, Hx Eye Prosthesis, Hx Glaucoma, Hx Legally Blind, Hx Macular Degeneration, Hx Vision Problem, Hx Deafness, Hx Hearing Aid, Hx Hearing Problem, Other Sensory Impairments Opthamlomology History: Denies: Hx Cataracts, Hx Contacts or Glasses, Hx Eye Injury, Hx Eye Prosthesis, Hx Glaucoma, Hx Legally Blind, Hx Macular Degeneration, Hx Vision Problem, Other Sensory Impairments Neurological History: Denies: Hx Seizures, Hx Transient Ischemic Attacks (TIA) - Surgical History Surgery Procedure, Year, and Place: None - Immunization History Date of Influenza Vaccine: 01/10/2019 Immunizations Up to Date: Yes Infectious Disease History: No Infectious Disease History: Denies: Traveled Outside the [place] in Last 30 Days - Family History Known Family History: Positive: Diabetes, Other - lymphoma - Social History Alcohol Use: None Hx Substance Use: No Substance Use Type: Reports: None Hx Tobacco Use: No Smoking Status (MU): Never Smoked Tobacco Review of Systems Positive: Chills, Fatigue. Negative: Fever Positive: Palpitations, Chest Pain Positive: Other - body aches All Other Systems Reviewed And Are Negative: Yes Physical Exam - Summary Physical Exam Summary: Constitutional: Well-developed, Well-nourished, Alert. (-) Distressed Skin: Warm, Dry HENT: Normocephalic; Atraumatic Eyes: Conjunctiva normal Neck: Musculoskeletal ROM normal neck. (-) JVD, (-) Stridor, (-) Tracheal deviation Cardio: Rhythm regular, rate normal, Heart sounds normal; Intact distal pulses; The pedal pulses are 2+ and symmetric. Radial pulses are 2+ and symmetric. (-) Murmur Pulmonary/Chest wall: Effort normal. (-) Respiratory distress, (-) Wheezes, (-) Rales Abd: Soft, (-) tenderness, (-) Distension, (-) Guarding, (-) Rebound Musculoskeletal: (-) Edema Lymph: (-) Cervical adenopathy Neuro: Alert, Oriented x3 Psych: Mood and affect Normal Triage Information Reviewed: Yes Vital Signs On Initial Exam: Initial Vitals Temp Pulse Resp BP Pulse Ox 36.2 C 97 18 150/83 100 01/10/19 16:05 01/10/19 16:05 01/10/19 16:05 01/10/19 16:05 01/10/19 16:05 Vital Signs Reviewed: Yes Diagnostics - Vital Signs Vital Signs Temp Pulse Resp BP Pulse Ox 01/10/19 17:20 37.7 C 93 18 161/97 100 01/10/19 16:05 36.2 C 97 18 150/83 100 - Laboratory Lab Results: Lab Results 01/10/19 01/10/19 01/10/19 Range/Units 16:28 16:28 16:28 WBC 10.1 (3.5-10.8) 10^3/uL RBC 5.27 (4.18-5.48) 10^6 /uL Hgb 15.9 (14.0-18.0) g/dL Hct 45 (42-52) % MCV 86 (80-94) fL MCH 30 (27-31) pg MCHC 35 (31-36) g/dL RDW 13 (10-15) % Plt Count 292 (150-450) 10^3/uL MPV 7.9 (7.4-10.4) fL Neut % (Auto) 84.4 % Lymph % (Auto) 8.7 % Whitfield % (Auto) 5.5 % Eos % (Auto) 0.8 % Baso % (Auto) 0.6 % Absolute Neuts (auto) 8.5 H (1.5-7.7) 10^3/ul Absolute Lymphs (auto) 0.9 L (1.0-4.8) 10^3/ul Absolute Monos (auto) 0.5 (0-0.8) 10^3/ul Absolute Eos (auto) 0.1 (0-0.6) 10^3/ul Absolute Basos (auto) 0.1 (0-0.2) 10^3/ul Absolute Nucleated RBC 0.0 10^3/ul Nucleated RBC % 0.0 INR (Anticoag Therapy) 1.07 (0.82-1.09) Sodium 138 (135-145) mmol/L Potassium 3.8 (3.5-5.0) mmol/L Chloride 102 (101-111) mmol/L Carbon Dioxide 30 (22-32) mmol/L Anion Gap 6 (2-11) mmol/L BUN 15 (6-24) mg/dL Creatinine 0.83 (0.67-1.17) mg/dL Est GFR ( Amer) 144.4 (>60) Est GFR (Non-Af Amer) 119.4 (>60) BUN/Creatinine Ratio 18.1 (8-20) Glucose 103 H (70-100) mg/dL Calcium 9.8 (8.6-10.3) mg/dL Magnesium 2.3 (1.9-2.7) mg/dL Total Bilirubin 0.40 (0.2-1.0) mg/dL AST 18 (13-39) U/L ALT 15 (7-52) U/L Alkaline Phosphatase 100 (34-104) U/L Troponin I 0.00 (<0.04) ng/mL C-Reactive Protein Pending Total Protein 7.9 (6.4-8.9) g/dL Albumin 4.8 (3.2-5.2) g/dL Globulin 3.1 (2-4) g/dL Albumin/Globulin Ratio 1.5 (1-3) TSH (0.34-5.60) mcIU/mL 01/10/19 Range/Units 16:28 WBC (3.5-10.8) 10^3/uL RBC (4.18-5.48) 10^6 /uL Hgb (14.0-18.0) g/dL Hct (42-52) % MCV (80-94) fL MCH (27-31) pg MCHC (31-36) g/dL RDW (10-15) % Plt Count (150-450) 10^3/uL MPV (7.4-10.4) fL Neut % (Auto) % Lymph % (Auto) % Whitfield % (Auto) % Eos % (Auto) % Baso % (Auto) % Absolute Neuts (auto) (1.5-7.7) 10^3/ul Absolute Lymphs (auto) (1.0-4.8) 10^3/ul Absolute Monos (auto) (0-0.8) 10^3/ul Absolute Eos (auto) (0-0.6) 10^3/ul Absolute Basos (auto) (0-0.2) 10^3/ul Absolute Nucleated RBC 10^3/ul Nucleated RBC % INR (Anticoag Therapy) (0.82-1.09) Sodium (135-145) mmol/L Potassium (3.5-5.0) mmol/L Chloride (101-111) mmol/L Carbon Dioxide (22-32) mmol/L Anion Gap (2-11) mmol/L BUN (6-24) mg/dL Creatinine (0.67-1.17) mg/dL Est GFR ( Amer) (>60) Est GFR (Non-Af Amer) (>60) BUN/Creatinine Ratio (8-20) Glucose (70-100) mg/dL Calcium (8.6-10.3) mg/dL Magnesium (1.9-2.7) mg/dL Total Bilirubin (0.2-1.0) mg/dL AST (13-39) U/L ALT (7-52) U/L Alkaline Phosphatase (34-104) U/L Troponin I (<0.04) ng/mL C-Reactive Protein Total Protein (6.4-8.9) g/dL Albumin (3.2-5.2) g/dL Globulin (2-4) g/dL Albumin/Globulin Ratio (1-3) TSH 0.90 (0.34-5.60) mcIU/mL Result Diagrams: 01/10/19 16:28 01/10/19 16:28 Lab Statement: Any lab studies that have been ordered have been reviewed, and results considered in the medical decision making process. - EKG 1605 Cardiac Rate: NL - 91 bpm EKG Rhythm: Sinus Rhythm Summary of EKG Findings: SR 91 bpm with no STEMI. Chest Pain Course/Dx - Course Course Of Treatment: This patient is a 18 year old M presenting to [facility] accompanied by female friend and male friend with a chief complaint of chest palpations and chest pain since 1606. EKG reveals SR 91 bpm with no STEMI. Regarding the referring physicians concerning for WPW, there are no signs of preexcitation, no delta waves, no discordant T wave abnormalities. I do not believe there are clinical findings for WPW. The patient has cardiology follow- up in the morning at 7:30 AM. He will be given his normally prescribes antihypertensive, he appears significantly anxious. Dr. Shay states that he reviewed Dr. Tapia's notes and patient has a negative echocardiogram. Dr. Shay states that he does not suspect PE yet patient oximetry is 100% and symptoms are intermittent. Test results with no significant abnormalities except for Absolute Neuts 8.5, Absolute Lymphs 0.9, Glucose 103. In the ED course the patient was given Lopressor 25 mg. Patient will be discharged and follow up from Dr. Tapia at [facility]. The patient is agreeable with this plan. - Diagnoses Provider Diagnoses: Heart palpitations, Chest pain Discharge ED - Sign-Out/Discharge Documenting (check all that apply): Patient Departure - discharge Patient Received Moderate/Deep Sedation with Procedure: No - Discharge Plan Condition: Stable Disposition: HOME Patient Education Materials: Chest Pain (ED), Heart Palpitations (ED) Referrals: [facility] [Outside] - As Soon As Possible Additional Instructions: PLEASE FOLLOW UP WITH DR. TAPIA PLANNED WITH YOUR APPOINTMENT TOMORROW. PLEASE RETURN TO THE EMERGENCY DEPARTMENT FOR CHANGING OR WORSENING SYMPTOMS - Attestation Statements Document Initiated by Scribe: Yes Documenting Scribe: Leah Machado Provider For Whom Scribe is Documenting (Include Credential): Dr. Smith Shay MD Scribe Attestation: Leah Phillips , scribed for Dr. Smith Shay MD on 01/10/19 at 2043. Status of Scribe Document: Ready
[2019-01-10 18:31] LABS: C Reactive Protein 3.8 mg/L (<8.01)
--- NOTE | 2019-01-10 18:50 | ED ---
HPI Chest Pain - History of Current Complaint Chief Complaint: EDDysrhythmPalp Time Seen by Provider: 01/10/19 17:57 Hx Obtained From: Patient Pain Intensity: 0 - Additional Pertinent History Primary Care Physician: MARCELA - Allergy/Home Medications Allergies/Adverse Reactions: Allergies Allergy/AdvReac Type Severity Reaction Status Date / Time No Known Allergies Allergy Verified 01/08/19 18:54 PMH/Surg Hx/FS Hx/Imm Hx Endocrine/Hematology History: Denies: Hx Diabetes Cardiovascular History: Denies: Hx Peripheral Vascular Disease Sensory History: Denies: Hx Cataracts, Hx Contacts or Glasses, Hx Eye Injury, Hx Eye Prosthesis, Hx Glaucoma, Hx Legally Blind, Hx Macular Degeneration, Hx Vision Problem, Hx Deafness, Hx Hearing Aid, Hx Hearing Problem, Other Sensory Impairments Opthamlomology History: Denies: Hx Cataracts, Hx Contacts or Glasses, Hx Eye Injury, Hx Eye Prosthesis, Hx Glaucoma, Hx Legally Blind, Hx Macular Degeneration, Hx Vision Problem, Other Sensory Impairments Neurological History: Denies: Hx Seizures, Hx Transient Ischemic Attacks (TIA) - Surgical History Surgery Procedure, Year, and Place: None - Immunization History Date of Influenza Vaccine: 01/10/2019 Immunizations Up to Date: Yes Infectious Disease History: No Infectious Disease History: Denies: Traveled Outside the [place] in Last 30 Days - Family History Known Family History: Positive: Diabetes, Other - lymphoma - Social History Alcohol Use: None Hx Substance Use: No Substance Use Type: Reports: None Hx Tobacco Use: No Smoking Status (MU): Never Smoked Tobacco Physical Exam Vital Signs On Initial Exam: Initial Vitals Temp Pulse Resp BP Pulse Ox 36.2 C 97 18 150/83 100 01/10/19 16:05 01/10/19 16:05 01/10/19 16:05 01/10/19 16:05 01/10/19 16:05 Diagnostics - Vital Signs Vital Signs Temp Pulse Resp BP Pulse Ox 01/10/19 17:20 99.8 F 93 18 161/97 100 01/10/19 16:05 97.1 F 97 18 150/83 100 - Laboratory Lab Results: Lab Results 01/10/19 01/10/19 01/10/19 Range/Units 16:28 16:28 16:28 WBC 10.1 (3.5-10.8) 10^3/uL RBC 5.27 (4.18-5.48) 10^6 /uL Hgb 15.9 (14.0-18.0) g/dL Hct 45 (42-52) % MCV 86 (80-94) fL MCH 30 (27-31) pg MCHC 35 (31-36) g/dL RDW 13 (10-15) % Plt Count 292 (150-450) 10^3/uL MPV 7.9 (7.4-10.4) fL Neut % (Auto) 84.4 % Lymph % (Auto) 8.7 % Johnston % (Auto) 5.5 % Eos % (Auto) 0.8 % Baso % (Auto) 0.6 % Absolute Neuts (auto) 8.5 H (1.5-7.7) 10^3/ul Absolute Lymphs (auto) 0.9 L (1.0-4.8) 10^3/ul Absolute Monos (auto) 0.5 (0-0.8) 10^3/ul Absolute Eos (auto) 0.1 (0-0.6) 10^3/ul Absolute Basos (auto) 0.1 (0-0.2) 10^3/ul Absolute Nucleated RBC 0.0 10^3/ul Nucleated RBC % 0.0 INR (Anticoag Therapy) 1.07 (0.82-1.09) Sodium 138 (135-145) mmol/L Potassium 3.8 (3.5-5.0) mmol/L Chloride 102 (101-111) mmol/L Carbon Dioxide 30 (22-32) mmol/L Anion Gap 6 (2-11) mmol/L BUN 15 (6-24) mg/dL Creatinine 0.83 (0.67-1.17) mg/dL Est GFR ( Amer) 144.4 (>60) Est GFR (Non-Af Amer) 119.4 (>60) BUN/Creatinine Ratio 18.1 (8-20) Glucose 103 H (70-100) mg/dL Calcium 9.8 (8.6-10.3) mg/dL Magnesium 2.3 (1.9-2.7) mg/dL Total Bilirubin 0.40 (0.2-1.0) mg/dL AST 18 (13-39) U/L ALT 15 (7-52) U/L Alkaline Phosphatase 100 (34-104) U/L Troponin I 0.00 (<0.04) ng/mL C-Reactive Protein Pending Total Protein 7.9 (6.4-8.9) g/dL Albumin 4.8 (3.2-5.2) g/dL Globulin 3.1 (2-4) g/dL Albumin/Globulin Ratio 1.5 (1-3) TSH (0.34-5.60) mcIU/mL 01/10/19 Range/Units 16:28 WBC (3.5-10.8) 10^3/uL RBC (4.18-5.48) 10^6 /uL Hgb (14.0-18.0) g/dL Hct (42-52) % MCV (80-94) fL MCH (27-31) pg MCHC (31-36) g/dL RDW (10-15) % Plt Count (150-450) 10^3/uL MPV (7.4-10.4) fL Neut % (Auto) % Lymph % (Auto) % Johnston % (Auto) % Eos % (Auto) % Baso % (Auto) % Absolute Neuts (auto) (1.5-7.7) 10^3/ul Absolute Lymphs (auto) (1.0-4.8) 10^3/ul Absolute Monos (auto) (0-0.8) 10^3/ul Absolute Eos (auto) (0-0.6) 10^3/ul Absolute Basos (auto) (0-0.2) 10^3/ul Absolute Nucleated RBC 10^3/ul Nucleated RBC % INR (Anticoag Therapy) (0.82-1.09) Sodium (135-145) mmol/L Potassium (3.5-5.0) mmol/L Chloride (101-111) mmol/L Carbon Dioxide (22-32) mmol/L Anion Gap (2-11) mmol/L BUN (6-24) mg/dL Creatinine (0.67-1.17) mg/dL Est GFR ( Amer) (>60) Est GFR (Non-Af Amer) (>60) BUN/Creatinine Ratio (8-20) Glucose (70-100) mg/dL Calcium (8.6-10.3) mg/dL Magnesium (1.9-2.7) mg/dL Total Bilirubin (0.2-1.0) mg/dL AST (13-39) U/L ALT (7-52) U/L Alkaline Phosphatase (34-104) U/L Troponin I (<0.04) ng/mL C-Reactive Protein Total Protein (6.4-8.9) g/dL Albumin (3.2-5.2) g/dL Globulin (2-4) g/dL Albumin/Globulin Ratio (1-3) TSH 0.90 (0.34-5.60) mcIU/mL Result Diagrams: 01/10/19 16:28 01/10/19 16:28 Lab Statement: Any lab studies that have been ordered have been reviewed, and results considered in the medical decision making process. Chest Pain Course/Dx - Course Course Of Treatment: Regarding the referring physicians concerning for WPW, there are no signs of preexcitation, no delta waves, no discordant T wave abnormalities. I do not believe there are clinical findings for WPW. The patient has cardiology follow-up in the morning at 7:30 AM. He will be given his normally prescribes antihypertensive, he appears significantly anxious.. Discharge ED - Sign-Out/Discharge Documenting (check all that apply): Patient Departure Patient Received Moderate/Deep Sedation with Procedure: No - Discharge Plan Condition: Stable Disposition: HOME Patient Education Materials: Heart Palpitations (ED), Chest Pain (ED) Referrals: [facility] [Outside] - As Soon As Possible Additional Instructions: PLEASE FOLLOW UP WITH DR. TAPIA PLANNED WITH YOUR APPOINTMENT TOMORROW. PLEASE RETURN TO THE EMERGENCY DEPARTMENT FOR CHANGING OR WORSENING SYMPTOMS - Attestation Statements Document Initiated by Scribe: Yes
[2019-01-10 19:12] VITALS: BP 119/68
== END 2019-01-10 19:12 | disposition home or self-care (01) ==
LOC: ED 15:52
DX: R07.9 Chest pain, unspecified (principal); R00.2 Palpitations; Z79.899 Other long term (current) drug therapy
CPT/HCPCS: 36415; 80053; 83735; 84443; 84484; 85025; 85610; 86140; 93005; 99282

== ENCOUNTER 2019-01-21 13:40 | Observation (INO) | payer OTHER ==
--- OUTSIDE RECORDS SUMMARY | 2019-01-21 14:10 | XMS REPORT | Continuity of Care Document ---
:2000 External Reference #:[id number] Author Name Yassine Jaime DO FAC (transmitted by agent of provider Mirna Almanzar) Address 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 Medicine Problems Description No Information Available Social History Type Date Description Comments Sex Unknown ETOH Use Denies alcohol use Tobacco Use Start: Unknown Patient has never smoked Recreational Drug Use Denies Drug Use Smoking Status Reviewed: 01/11/19 Patient has never smoked Exercise Type/Frequency Does not exercise Exercise Type/Frequency Exercises sporadically Has not been exercising in the past week Allergies, Adverse Reactions, Alerts Description No Known Drug Allergies Medications Active Medications SIG Qnty Indications Ordering Provider Date Metoprolol Tartrate 1 by mouth twice Unknown 25mg a day Tablets Immunizations Description No Information Available Vital Signs Date Vital Result Comment 01/11/2019 7:41am Height 72 inches 6'0" Weight 131.00 lb with shoes Heart Rate 85 /min BP Systolic Sitting 120 mmHg Lue, reg cuff BP Diastolic Sitting 86 mmHg Lue, reg cuff BP Systolic Standing 124 mmHg Lue, reg cuff BP Diastolic Standing 86 mmHg Lue, reg cuff Respiratory Rate 12 /min BMI (Body Mass Index) 17.8 kg/m2 Height Percentile 81 % Weight Percentile 15th Results Description No Information Available Procedures Date Code Description Status 01/11/2019 60841 EKG Tracing & Interpretation Completed 01/03/2019 18322 ECHO Transthorasic Realtime 2D W Doppler & Color Flow Hosp Completed Medical Devices Description No Information Available Encounters Type Date Location Provider Dx Diagnosis Office Visit 01/03/2019 [facility] Michelle Dove, R00.0 Tachycardia, 11:30a Assoc,pc M.D. 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 01/03/2019 R94.31 Abnormal electrocardiogram [ECG] [EKG] Yassine BrigidaDylan Jaime, DO [facility] 01/03/2019 R00.0 Tachycardia, unspecified [facility] Treatment Future Appointment(s):01/16/2019 7:30 am - [facility] Nuclear Schedule at [facility]01/16/2019 7:45 am - Yassine Jaime DO FACC at [facility]01/11/2019 - Yassine Jaime DO FACCR00.0 Tachycardia, unspecifiedComments:I think you need to see someone at [facility] about possibly starting anti-anxiety medication. Start taking 1/2 tablet of metoprolol twice daily for 2 days and then stop completely. You will feel your heart rate elevated after that. This is not dangerous. We are going to have you walk on a treadmill to further test the heart electricity. 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 You do not have any arrhythmias or symptoms related to this. The palpitations you felt correlated to sinus tachycardia, a benign elevated physiologic heart rate.Follow up:f/u 6 months with ekgI45.6 Pre-excitation syndromeNew Orders:Stress Test, Treadmill, No Imaging, Ordered: 01/11/19F41.9 Anxiety disorder, unspecified Functional Status Description No Information Available Mental Status Description No Information Available Referrals Description No Information Available
--- OUTSIDE RECORDS SUMMARY | 2019-01-21 14:11 | XMS REPORT | Continuity of Care Document ---
:1999 External Reference #:[id number] Author Name Yassine Jaime DO [facility] Address 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 Medicine Problems Description No Information Available Social [...] Weight 131.00 lb with shoes Heart Rate 104 /min BP Systolic Sitting 120 mmHg Lue, reg cuff BP Diastolic Sitting 86 mmHg Lue, reg cuff BP Systolic Standing 124 mmHg Lue, reg cuff BP Diastolic Standing 86 mmHg Lue, reg cuff Respiratory Rate 12 /min BMI (Body Mass Index) 17.8 kg/m2 Height Percentile 81 % Weight Percentile 15th Results Description No Information Available Procedures Date Code Description Status 01/03/2019 95179 ECHO Transthorasic Realtime 2D W Doppler & Color Flow Hosp Completed Medical Devices Description No Information Available Encounters Type Date Location Provider Dx Diagnosis Office Visit 01/03/2019 [facility] Michelle Dove, R00.0 Tachycardia, 11:30a Assoc,eddy Ramirez unspecified Hospitalists Office Visit 01/03/2019 [facility] Yassine Mendenhall.31 Abnormal 8:56a Of [place] Jaime DO [facility] electrocardiogram [ECG] [EKG] R00.0 Tachycardia, unspecified Assessments Date Code Description Provider 01/03/2019 R00.0 Tachycardia, unspecified Michelle Dove M.D. 01/03/2019 R94.31 Abnormal electrocardiogram [ECG] [EKG] Yassine Jaime DO [facility] 01/03/2019 R00.0 Tachycardia, unspecified Yassine Jaime DO [facility] Plan of Treatment No Information Available Functional Status Description No Information Available Mental Status Description No Information Available Referrals Description No Information Available
[2019-01-21 14:20] LABS: ABS Basophils 0.1 10^3/ul (0-0.2); ABS Eosinophils 0.1 10^3/ul (0-0.6); ABS Lymphocytes 0.7 10^3/ul (1.0-4.8); ABS Monocytes 0.5 10^3/ul (0-0.8); ABS Neutrophils 9.7 10^3/ul (1.5-7.7); Eosinophil % 0.6 %; Hematocrit 46 % (42-52); Hemoglobin 15.6 g/dL (14.0-18.0); Lymphocyte % 6.7 %; Mean Corpuscular HGB Conc 34 g/dL (31-36); Mean Corpuscular Hemoglobin 29 pg (27-31); Mean Corpuscular Volume 86 fL (80-94); Mean Platelet Volume 7.8 fL (7.4-10.4); Platelet Count 260 10^3/uL (150-450); Red Blood Count 5.33 10^6 /uL (4.18-5.48); Red Cell Distribution Width 13 % (10-15); White Blood Count 11.1 10^3/uL (3.5-10.8)
--- NOTE | 2019-01-21 14:30 | ED ---
HPI Chest Pain - HPI Summary HPI Summary: This patient is a 18 year old M presenting to [facility] accompanied by a friend with a chief complaint of CP since earlier today. Pt says he wakes up weak. Dr. Jaime thinks pt is having panic attacks, but the [facility] doctor thinks differently. Dr. Jaime took pt off of his Metoprolol and told him to consider taking anti-anxiety medication. The patient rates the pain 6/10 in severity. Symptoms aggravated by nothing. Symptoms alleviated by nothing. Patient reports lightheadedness, myalgia. Patient denies any fever, chills, erythema of eyes, sore throat, SOB, cough, abdominal pain, N/V, dysuria, hematuria, edema, rash, or dizziness. Pt does not have any thyroid issues. Pt denies IV drug abuse. - History of Current Complaint Chief Complaint: EDChestPainROMI Time Seen by Provider: 01/21/19 14:10 Hx Obtained From: Patient Onset/Duration: Started Hours Ago - since earlier today, Still Present Initial Severity: Mild Current Severity: Mild Pain Intensity: 6 Pain Scale Used: 0-10 Numeric Chest Pain Radiates: No Aggravating Factor(s): Nothing Alleviating Factor(s): Nothing Associated Signs and Symptoms: Positive: Chest Pain, Weakness, Lightheadedness, Other: - positive - lightheadedness, myalgia. negative - erythema of eyes, sore throat, dysuria, hematuria, rash. Negative: Dizziness, Shortness of Breath, Fever, Chills, Nausea, Cough, Abdominal Pain, Vomiting, Edema - Additional Pertinent History Primary Care Physician: [id number] - Allergy/Home Medications Allergies/Adverse Reactions: Allergies Allergy/AdvReac Type Severity Reaction Status Date / Time No Known Allergies Allergy Verified 01/08/19 18:54 Home Medications: Home Medications Multivitamins/Minerals TAB* [Theragran/minerals TAB*] 1 tab PO DAILY 01/21/19 [ History Confirmed 01/21/19] PMH/Surg Hx/FS Hx/Imm Hx Previously Healthy: No Endocrine/Hematology History: Denies: Hx Diabetes Cardiovascular History: Denies: Hx Peripheral Vascular Disease Sensory History: Denies: Hx Cataracts, Hx Contacts or Glasses, Hx Eye Injury, Hx Eye Prosthesis, Hx Glaucoma, Hx Legally Blind, Hx Macular Degeneration, Hx Vision Problem, Hx Deafness, Hx Hearing Aid, Hx Hearing Problem, Other Sensory Impairments Opthamlomology History: Denies: Hx Cataracts, Hx Contacts or Glasses, Hx Eye Injury, Hx Eye Prosthesis, Hx Glaucoma, Hx Legally Blind, Hx Macular Degeneration, Hx Vision Problem, Other Sensory Impairments Neurological History: Denies: Hx Seizures, Hx Transient Ischemic Attacks (TIA) - Surgical History Surgical History: None Surgery Procedure, Year, and Place: None - Immunization History Date of Influenza Vaccine: 01/10/2019 Infectious Disease History: No Infectious Disease History: Denies: Traveled Outside the [place] in Last 30 Days - Family History Known Family History: Positive: Diabetes, Other - lymphoma - Social History Alcohol Use: None Hx Substance Use: No Substance Use Type: Reports: None Hx Tobacco Use: No Smoking Status (MU): Never Smoked Tobacco Review of Systems Negative: Fever, Chills Negative: Erythema Negative: Sore Throat Positive: Chest Pain Negative: Shortness Of Breath, Cough Negative: Abdominal Pain, Vomiting, Nausea Negative: dysuria, hematuria Positive: Myalgia. Negative: Edema Negative: Rash Neurological: Other - positive -lightheadedness. negative - dizziness Positive: Weakness All Other Systems Reviewed And Are Negative: Yes Physical Exam - Summary Physical Exam Summary: Constitutional: Well-developed, Well-nourished, Alert. (-) Distressed Skin: Warm, Dry. Hot to touch. HENT: Normocephalic; Atraumatic Eyes: Conjunctiva normal Neck: Musculoskeletal ROM normal neck. (-) JVD, (-) Stridor, (-) Tracheal deviation Cardio: Rhythm regular, rate normal, Heart sounds normal; Intact distal pulses; The pedal pulses are 2+ and symmetric. Radial pulses are 2+ and symmetric. (-) Murmur Pulmonary/Chest wall: Effort normal. (-) Respiratory distress, (-) Wheezes, (-) Rales Abd: Soft, (-) tenderness, (-) Distension, (-) Guarding, (-) Rebound Musculoskeletal: (-) Edema Lymph: (-) Cervical adenopathy Neuro: Alert, Oriented x3 Psych: Mood and affect Normal Triage Information Reviewed: Yes Vital Signs On Initial Exam: Initial Vitals Temp Pulse Resp BP Pulse Ox 101.2 F 137 20 147/86 100 01/21/19 13:46 01/21/19 13:46 01/21/19 13:46 01/21/19 13:46 01/21/19 13:46 Vital Signs Reviewed: Yes Diagnostics - Vital Signs Vital Signs Temp Pulse Resp BP Pulse Ox 01/21/19 13:46 101.2 F 137 20 147/86 100 - Laboratory Result Diagrams: 01/21/19 14:11 01/22/19 09:21 Lab Statement: Any lab studies that have been ordered have been reviewed, and results considered in the medical decision making process. - Radiology CXR Radiology Interpretation Completed By: Radiologist Summary of Radiographic Findings: IMPRESSION: No active cardiopulmonary disease is noted. These findings were reviewed by Dr. Shay. - CT Chest/Thorax CTA CT Interpretation Completed By: Radiologist Summary of CT Findings: IMPRESSION: No acute findings. No pulmonary embolus. These findings were reviewed by Dr. Shay. - EKG 1344 Cardiac Rate: Tachycardia - 135 BPM EKG Rhythm: Sinus Tachycardia Summary of EKG Findings: EKG at 1344 shows 135 BPM, sinus tachycardia, no STEMI. Chest Pain Course/Dx - Course Course Of Treatment: This patient is a 18 year old M presenting to [facility] accompanied by a friend with a chief complaint of CP since earlier today. Pt says he wakes up weak. Dr. Jaime thinks pt is having panic attacks, but the [facility] doctor thinks differently. Dr. Jaime took pt off of his Metoprolol and told him to consider taking anti-anxiety medication. The patient rates the pain 6/10 in severity. Symptoms aggravated by nothing. Symptoms alleviated by nothing. Patient reports lightheadedness, myalgia. Patient denies any fever, chills, erythema of eyes, sore throat, SOB, cough, abdominal pain, N/ V, dysuria, hematuria, edema, rash, or dizziness. Pt does not have any thyroid issues. Pt denies IV drug abuse. Physical exam shows pt is hot to touch. Lab results show WBC 11.1, absolute neuts 9.7, absolute lymphs 0.7, glucose 157, Ur specific gravity 1.001. CXR IMPRESSION: No active cardiopulmonary disease is noted. Chest/Thorax CTA IMPRESSION: No acute findings. No pulmonary embolus. EKG at 1344 shows 135 BPM, sinus tachycardia, no STEMI. During ED course, pt was given Tylenol and fluids. At 1603, Dr. Stubbs says no WNP today. Pt does not require anti-arrhythmics. The source of the fever is to be determined. At 185, Dr. Shay discusses pt's case with Dr. Naylor. Pt is symptomatic with tachycardia including CP. The source of the fever is unknown. Pt had frequent urination in ED but negative UA. Pt will be admitted. Dx are fever of unknown origin and sinus tachycardia. - Diagnoses Provider Diagnoses: Sinus tachycardia, Fever, unknown origin - Provider Notifications Discussed Care Of Patient With: Joe Stubbs Time Discussed With Above Provider: 16:03 Instructed by Provider To: Other - Dr. Stubbs says no WNP today. Pt does not require anti-arrhythmics. The source of the fever is to be determined. At 185, Dr. Shay discusses pt's case with Dr. Naylor. - Critical Care Time Critical Care Time: 30-74 min - 45 min Discharge ED - Sign-Out/Discharge Documenting (check all that apply): Patient Departure - admit - Discharge Plan Condition: Improved Disposition: ADMITTED TO [facility] - Billing Disposition and Condition Condition: IMPROVED Disposition: Admitted to [facility] - Attestation Statements Document Initiated by Scribe: Yes Documenting Scribe: Demetrius Smyth Provider For Whom Scribe is Documenting (Include Credential): Dr. Smith Shay MD Scribe Attestation: Demetrius Phillips scribed for Dr. Smith Shay MD on 01/29/19 at 2220. Scribe Documentation Reviewed: Yes Provider Attestation: The documentation as recorded by the Demetrius pierre accurately reflects the service I personally performed and the decisions made by me, Dr. Smith Shay MD Status of Scribe Document: Viewed
[2019-01-21 14:38] LABS: ALT 12 U/L (7-52); AST 17 U/L (13-39); Activated Partial Thrombo Time 31.6 seconds (26.0-38.0); Albumin 4.8 g/dL (3.2-5.2); Albumin/Globulin Ratio 1.7 (1-3); Alkaline Phosphatase 89 U/L (34-104); Anion Gap 7 mmol/L (2-11); BUN/Creatinine Ratio 15.7 (8-20); Blood Urea Nitrogen 13 mg/dL (6-24); CO2 Carbon Dioxide 31 mmol/L (22-32); Calcium 9.8 mg/dL (8.6-10.3); Chloride 101 mmol/L (101-111); EGFR African American 144.4 (>60); EGFR Non-African American 119.4 (>60); Globulin 2.8 g/dL (2-4); Glucose 157 mg/dL (70-100); INR 1.04 (0.82-1.09); Potassium 3.7 mmol/L (3.5-5.0); Sodium 139 mmol/L (135-145); Total Protein 7.6 g/dL (6.4-8.9)
[2019-01-21 15:03] LABS: Urine Appearance Clear; Urine Bilirubin Negative (Negative); Urine Blood Negative (Negative); Urine Color Colorless; Urine Glucose Negative (Negative); Urine Ketones Negative (Negative); Urine Nitrite Negative (Negative); Urine Protein Negative (Negative); Urine Specific Gravity 1.001 (1.010-1.030); Urine Urobilinogen Negative (Negative)
[2019-01-21 15:57] LABS: C Reactive Protein < 1.00 mg/L (<8.01)
[2019-01-21] MEDS ORDERED: Acetaminophen TAB* 325 MG PO ONE (15:58)
[2019-01-21] MEDS ORDERED: NS 0.9% 1000 ML** 1,000 ML IV ONE (15:58)
[2019-01-21] MEDS ORDERED: Iohexol 300* (CONTRAST) 10 ML SDV IV ONE (16:54)
[2019-01-21 17:26] LABS: Urine Benzodiazepine Screen None Detected (None Detect); Urine Opiates Screen None Detected (None Detect)
[2019-01-21 18:15] LABS: Influenza A Molecular NEGATIVE (Negative); Influenza B Molecular NEGATIVE (Negative)
[2019-01-21] MEDS ORDERED: NS 0.9% 1000 ML** 1,000 ML IV SCH (20:30)
[2019-01-21 20:51] LABS: Creatine Kinase 188 U/L (10-223); LDH 121 U/L (140-271); Rheumatoid Factor < 10 IU/mL (<15)
[2019-01-21 21:05] LABS: TSH (Thyroid Stimulating Horm) 0.67 mcIU/mL (0.34-5.60)
[2019-01-21 21:07] LABS: Free T4 0.91 ng/dL (0.61-1.12)
[2019-01-21 21:16] LABS: Erythrocyte Sed Rate 2 mm/Hr (0-14)
--- NOTE | 2019-01-21 23:24 | HP ---
HISTORY AND PHYSICAL: DATE OF ADMISSION: 01/21/19 ADMITTING PROVIDER: Pedro Naylor MD. PRIMARY CARE PROVIDER: Dr. Matos at [facility]. OUTPATIENT OFFSET PRINTER: Dr. Yassine Jaime. CHIEF COMPLAINT: Chest pressure, symptomatic tachycardia (rates reportedly up [id number] at home), dizziness, fever, increased frequency of urination. HISTORY OF PRESENT ILLNESS: Dale Adler is a 18-year-old male with past medical history of recent sinus tachycardia with intermittent preexcitation/ Pgwwc-Vzuceknnw-Avlne concern per outpatient detective captain, Dr. Jaime, and recently stopped off beta-blockers for this reason. He was admitted back on , had an echocardiogram which shows preserved ejection fraction. He had stress test as an outpatient just 5 days ago, which was normal, did not show signs of preexcitation. On day of admission, he bought a heart rate monitor on recommendation from his [facility] providers. He noticed some chest pressure and pinching about 3/10 this morning. He went to [facility]. He was discharged home but later that day noted that his heart rates were as high as 160 to 170 and he had been told to return to the emergency room for anything above 150. He has been noticing some increased acid reflux and some tingling in his left arm. The chest pressure does not seem exertional. Denies any shortness of breath. He has had some chills and sweats and woke feeling damp this mornings. He has been lightheaded and had some dizziness. He denies any joint pain, rashes, cough, or dysuria. He did have some slight stiffness in his left neck and had a slight posterior headache, both resolved. He was noted to be frequently urinating in the emergency room approximately every hour. He has been drinking several 700 cc water bottle a day, has either 0 to 1 episode of nocturia. Initial workup in the [facility] [place] [facility] Room showed EKG with sinus tachycardia at [address] depression in V3 to V6. Film Vault Supervisor, Dr. Stubbs was consulted by Dr. Shay, and there was reportedly no concern for Micky-Parkinson -White physiology on that EKG. He had slight leukocytosis of 11.1 and hyperglycemia at 157. Initial two troponins were both 0.00. He was admitted to hospitalist service for fever of unknown origin with 2nd SIRS criteria of tachycardia; chest pressure and symptomatic tachycardia. He states his mood is jovial. Denies any symptoms of anxiety or panic attacks. He denies any significant outdoor exposure or recent travel. He was in [place] over the summer. No sick contacts. No insect or tick bites. He did have negative plasma free metanephrine and normetanephrine and TSH has been within normal limits, but generally down trending from 1.5 to 0.9 over the last week. Flu was negative. CRP was negative. PAST MEDICAL HISTORY: Includes physiological sinus tachycardia with intermittent concern for Oredy-Dvgurujqt-Iqqwj. PAST SURGICAL HISTORY: None. FAMILY HISTORY: Mother is alive, healthy, age 49. Father is alive, healthy, age 50. One brother alive, healthy, age 21. There was one maternal aunt that had a form of diabetes. SOCIAL HISTORY: Never a smoker, no drug use, no alcohol. He is a student of [employer] at [employer]. Desires to be a full code. Medical surrogate is his parents, Yelitza and Bryan Adler. REVIEW OF SYSTEMS: A complete 14-point review of systems is negative except as per HPI. He denies any sore throat, lymphadenopathy, rashes, or joint pains. Does have hypermobile left elbow. He has noted some slight tremors in his legs. PHYSICAL EXAMINATION GENERAL APPEARANCE: In no acute distress. VITAL SIGNS: Temperature 101.2, heart rate between 103 and 135, respiratory rate between 11 and 20, satting 99% on room air, blood pressure 147/86. HEENT: Normocephalic, atraumatic. Pupils equal, round, and reactive to light. Extraocular motions are intact. No scleral icterus. NECK: No cervical lymphadenopathy. Neck is supple. LUNGS: Somewhat distant, but clear to auscultation with no wheezing, rales, or rhonchi. CARDIOVASCULAR: Tachycardic. Regular. No murmurs, rubs, gallops. ABDOMEN: Soft, nontender, nondistended. No rebound or guarding. EXTREMITIES: Warm, well-perfused. No peripheral edema. NEUROLOGIC: Cranial nerves II through XII are intact. Sales And Production Manager strength intact. Biceps, triceps, deltoids strength intact. Sensation intact. Reflexes 2+ in bilateral patella. DIAGNOSTIC STUDIES/LAB DATA: Imaging: Chest x-ray demonstrated no active cardiopulmonary disease. CTA of the chest demonstrated no acute finding. No PE. No enlarged lymph nodes. EKG demonstrated sinus tachycardia, rate 135, ST depressions in V3 to V6, right ventricular hypertrophy, QTc 432. ASSESSMENT AND PLAN: Dale Adler is a 18-year-old male with now his fourth presentation to the emergency room in the last few weeks with one prior admission for tachycardia, now associated with fevers and hyperglycemia, lightheadedness, and dizziness. He has had an unremarkable workup with echocardiogram, stress test, metanephrine analysis and is being admitted to observation in part for fever of unknown origin with this tachycardia meeting a 2nd SIRS criteria. We will followup blood cultures. I am adding on ESR, rheumatoid factor (though denies any joint pains), LDH, repeat TSH, added on total T3 and free T4 (there has been a general down trending in the TSH) and SANDRA and follow up with a Lyme screen that has already been sent by ED. He got 1 L normal saline.For his chest pressure, he is going to get his third troponin. We will get another EKG. Consider Cardiology consult in the morning , Dr. Stubbs was already contacted by ED staff and they reviewed the initial EKG. The ST depression seemed new from 01/10/19 in V3 to V6. He can eat heart healthy diet. He is Full code. [id number]/[facility] #: [id number] [facility]
[2019-01-22] MEDS ORDERED: NS 0.9% 1000 ML** 1,000 ML IV SCH (08:45)
[2019-01-22 09:56] LABS: BUN/Creatinine Ratio 13.5 (8-20); Calcium 9.5 mg/dL (8.6-10.3); EGFR African American 164.9 (>60); EGFR Non-African American 136.3 (>60); Phosphorus 3.1 mg/dL (2.5-5.0); Potassium 3.9 mmol/L (3.5-5.0)
[2019-01-22 11:23] VITALS: BP 125/66
--- NOTE | 2019-01-22 12:12 | ECHO ---
*[facility]* [place] [address] Fax #: [phone] Transthoracic Echocardiogram Patient: Dale Adler : 2000 Study Date: 01/22/2019 Age: 18 Gender: M HR: 97 bpm Height: 72 in /182.9 cm BSA: 1.77 m^2 Weight: 129.7 lb /59 kg BMI: 17.6 kg/m^2 *Route Cdl Driver: * Randa Carcamo CS RN *Referring Physician: * Michelle Dove *Reading Physician: * Joe Stubbs MD Indications: Abnormal EKG. Tachycardia. History: Palpitations. Obrjk-Hvwyabszs-Yvcwx syndrome. Tachycardia. Conclusions Summary: - Left ventricle: The cavity size is mildly reduced. Wall thickness is normal. Systolic function is normal. The estimated ejection fraction is 55-60%. Wall motion is normal; there are no regional wall motion abnormalities. - Mitral valve: There is trace regurgitation. - Aortic valve: Transvalvular velocity is within the normal range. There is no evidence of stenosis. There is no regurgitation. - Tricuspid valve: There is trace regurgitation. - Pericardium, extracardiac: There is no pericardial effusion. - Pulmonary arteries: Systolic pressure can not be accurately estimated. - Compared to study of 01/03/19, there is no change. Study data: Transthoracic echocardiogram. Procedure: Transthoracic echocardiography was performed. Image quality was good. Complete 2D, spectral Doppler, and color flow Doppler. Location: Bedside. Patient status: Observation. Patient room number: 420-01. Rhythm: Normal sinus rhythm. Findings Left ventricle: The cavity size is mildly reduced. Wall thickness is normal. Systolic function is normal. The estimated ejection fraction is 55-60%. Wall motion is normal; there are no regional wall motion abnormalities. Left ventricular diastolic function parameters are normal. Right ventricle: The cavity size is normal. Systolic function is normal. Left atrium: The atrium is at the lower limits of normal size to small. Right atrium: The atrium is normal in size. Mitral valve: The leaflets are mildly thickened. There is no evidence of stenosis. There is trace regurgitation. Aortic valve: The valve is structurally normal. The valve is trileaflet. Cusp separation is normal. Transvalvular velocity is within the normal range. There is no evidence of stenosis. There is no regurgitation. Tricuspid valve: The valve is structurally normal. There is no evidence of stenosis. There is trace regurgitation. Pulmonic valve: The valve is structurally normal. There is no evidence of stenosis. There is trace regurgitation. Aorta: Ascending aorta: The ascending aorta is not dilated. The aortic root appears normal. The aortic arch appears normal. Pericardium: There is no pericardial effusion. Pulmonary arteries: The main pulmonary artery is normal-sized. Systolic pressure can not be accurately estimated. Systemic veins: Inferior vena cava: The vessel is normal in size. There is (< 50%) respiratory change in the IVC dimension. Measurements Left ventricle Value Ref Aortic valve Value Ref JOYCE, LAX (L) 3.9 cm 4.2 - 5.8 Eliot diam, ED 2.0 cm ---- ESD, LAX 2.8 cm 2.5 - 4.0 Peak v, S 1.15 m/sec ---- FS, LAX 29 % 25 - 43 VTI, S 18.5 cm ---- PW, ED 0.9 cm 0.6 - 1.0 Mean grad, S 3.0 mm Hg ---- IVS/PW, ED 1.03 Peak grad, S 5.0 mm Hg ---- E', lat eliot, TDI 14.7 cm/sec >=10.0 LVOT/AV, VTI ratio 0.95 - --- E/e', lat eliot, 7 TDI Mitral valve Value Ref E', med eliot, TDI 13.8 cm/sec >=7.0 Peak E 0.98 m/sec - --- E/e', med eliot, 7 Peak A 0.86 m/sec ---- TDI Decel time 183 ms ---- E', avg, TDI 14.3 cm/sec Peak grad, D 3.0 mm Hg ---- E/e', avg, TDI 7 <=14 Peak E/A ratio 1.14 - --- LVOT Value Ref Pulmonic valve Value Ref Peak nela, S 1.03 m/sec Peak v, S 1.13 m/sec ---- VTI, S 17.6 cm Peak grad, S 5.0 mm Hg ---- Mean grad, S 2 mm Hg Aortic root Value Ref Ventricular septum Value Ref Root diam 2.7 cm <3.1 IVS, ED 0.9 cm 0.6 - 1.0 Ascending aorta Value Ref Right ventricle Value Ref AAo AP diam, S 2.9 cm ---- JOYCE minor ax, 3.2 cm 1.9 - 3.5 AAo AP diam/bsa, S 1.6 cm/m^2 ---- A4C mid Aortic arch Value Ref Left atrium Value Ref Arch diam 1.9 cm ---- AP dim, ES (L) 2.20 cm 3.00 - 4.00 Decending aorta Value Ref ML dim, A4C 3.2 cm Isaak peak nela 1.41 m/sec ---- SI dim, A4C 3.0 cm Vol/bsa, ES, 1-p (L) 8 ml/m^2 12 - 37 Inferior vena cava Value Ref A4C Diam 1.8 cm ---- Vol/bsa, ES, A/L (L) 15 ml/m^2 16 - 34 Right atrium Value Ref ML dim, ES, A4C 3.2 cm 2.6 - 4.4 SI dim, ES, A4C 3.6 cm 3.4 - 5.3 Legend: (L) and (H) aldo values outside specified reference range. Prepared and electronically signed by Joe Stubbs MD 01/22/2019 12:11
--- NOTE | 2019-01-22 14:49 | PN ---
Subjective Date of Service: 01/22/19 Interval History: Pt feels well,denies CP, palpitations, had been afebrile since admission Objective Active Medications: Sodium Chloride (Ns 0.9% 1000 Ml) 1,000 mls @ 100 mls/hr IV PER RATE EULA Stop: 01/22/19 18:44 Last Admin: 01/22/19 09:02 Dose: 100 mls/hr Vital Signs - 8 hr 01/22/19 01/22/19 01/22/19 06:51 08:00 11:15 Temperature 97.6 F 98.8 F Pulse Rate 97 99 Respiratory 16 16 16 Rate Blood Pressure 143/85 125/66 (mmHg) O2 Sat by Pulse 99 99 100 Oximetry Oxygen Devices in Use Now: None Appearance: 18 yo M in NAD, aAOx3 Eyes: No Scleral Icterus, PERRLA Ears/Nose/Mouth/Throat: NL Teeth, Lips, Gums, Mucous Membranes Moist Neck: NL Appearance and Movements; NL JVP, Trachea Midline Respiratory: Symmetrical Chest Expansion and Respiratory Effort, Clear to Auscultation Cardiovascular: NL Sounds; No Murmurs; No JVD Abdominal: NL Sounds; No Tenderness; No Distention Lymphatic: No Cervical Adenopathy Extremities: No Edema, No Clubbing, Cyanosis Skin: No Rash or Ulcers, No Nodules or Sclerosis Neurological: Alert and Oriented x 3, NL Muscle Strength and Tone Result Diagrams: 01/21/19 14:11 01/22/19 09:21 Assess/Plan/Problems-Billing Assessment: pt is being discharged home, see d/c summary for details
--- NOTE | 2019-01-22 20:32 | CONS ---
CC: [facility]; Dr. Yassine Jaime * CARDIOLOGY CONSULTATION: DATE OF CONSULT: 01/22/19 INDICATION FOR CONSULTATION: Tachycardia, chest pain. HISTORY OF PRESENT ILLNESS: The patient is a 18-year-old male who has been having symptoms of mild chest pain and tachycardia. He had an EKG at [facility], which showed a very mild WPW pattern, but no symptoms of palpitations, no symptoms of heart racing. The patient was seen in consultation by Dr. Yassine Jaime. The patient did have an echocardiogram 2 weeks ago, which was unremarkable. He had a treadmill stress test, which was also unremarkable. The patient was admitted to the hospital yesterday because of tachycardia, chest pain, and fever. In the emergency room, the patient had an EKG, which showed sinus tachycardia to 140 beats per minute, no evidence of a delta wave consistent with WPW, no evidence of arrhythmia. The patient was observed overnight. He was placed on IV antibiotics and IV fluids. He underwent a CAT scan of his chest, which was unremarkable. The patient did have an echocardiogram today, which showed normal LV size and systolic function. No significant valvular abnormalities. No evidence of pericardial effusion. In speaking with the patient this afternoon, he reports feeling much better. He feels like his chest pain has resolved. He denies any significant palpitations. He denies any lightheadedness, dizziness, or syncope. He denies any orthopnea. PAST MEDICAL HISTORY: Significant for sinus tachycardia and Micky-Parkinson- White syndrome. PAST SURGICAL HISTORY: None. OUTPATIENT MEDICATIONS: None. The patient was instructed to stop beta-blockers by Dr. Jaime. Dr. Jaime did not feel he needed to be maintained on beta-blockers that his sinus tachycardia was reactive and not primary. FAMILY HISTORY: Mother and father are alive and healthy. SOCIAL HISTORY: He is a student at [employer]. He denies tobacco or alcohol use. He does regular exercise. REVIEW OF SYSTEMS: Positive for fevers. Negative for changes in bowel or bladder habits. Negative for changes in weight. Other 12-point review is unremarkable. PHYSICAL EXAMINATION: Height is 6 feet, weight is 130 pounds, temperature 98.8 , heart rate is 100, blood pressure 125/66, respiratory rate is 16, oxygen saturation 100% on room air. Sclerae anicteric. Oropharynx is pink without erythema. Carotids are 2+ without bruits. JVD is normal. Thyroid is normal. Cardiac Exam: S1, S2 without any murmurs, rubs, or gallops. Lungs are clear to auscultation. Extremities show no edema. He has 2+ pulses throughout. The patient is awake, alert, and oriented. He moves all 4 extremities equally. DIAGNOSTIC STUDIES/LAB DATA: His EKG last night at 9 o'clock showed normal sinus rhythm with a very slight delta wave most prominent in lead V4 and V5. Again, his echocardiogram showed normal LV size and systolic function, no significant valvular abnormalities, no pericardial disease or pericardial effusion. Chemistry is within normal limits, BUN and creatinine are normal. AST and ALT are normal. TSH is normal. CBC is normal except for a white count of 11.1. INR is normal. IMPRESSION: The patient is a 18-year-old male who was admitted to the hospital with fevers and tachycardia. In general, I do not think there are any cardiac issues with this patient. The patient's cardiac exam is unremarkable. His echocardiogram is normal. His EKG shows only sinus tachycardia with WPW. There is no evidence of arrhythmias in this patient. For now, my recommendation is to continue to hydrate the patient. I do not think beta-blockers are necessary, I do not think any other cardiac testing is necessary. The patient can follow up with [facility] as an outpatient. [id number]/[facility] #: [id number] MAY
--- NOTE | 2019-01-22 22:58 | DS ---
CONTINUATION ADDENDUM NOW INCLUDED ON THIS REPORT DISCHARGE SUMMARY: DATE OF ADMISSION: 01/21/19 DATE OF DISCHARGE: 01/22/19 PRIMARY CARE PROVIDER: [facility]. DISCHARGE DIAGNOSIS: Fever and tachycardia, likely due to viral syndrome, resolved. SECONDARY DIAGNOSIS: Ongoing evaluation for tachycardia with Dr. Yassine Jaime, Cardiology, with recent negative cardiac stress test and echocardiogram. MEDICATIONS AT DISCHARGE: None. CONSULTATIONS DURING THE HOSPITAL STAY: Included Dr. Stubbs from Cardiology. LABORATORY DATA AND STUDIES PERFORMED DURING THE HOSPITAL STAY: Included on 12/03: Sodium of 140, potassium of 3.9, chloride 104, carbon-dioxide 30, BUN 10 , and creatinine 0.74. Liver function tests were unremarkable at admission. C - reactive protein was below 1. TSH of 0.67, free T4 of 0.9, total T3 of 95. CBC at admission: White blood cell count of 11.1, hemoglobin 15.6, hematocrit of 46, and platelets of 160, ESR of 2. Lyme titer antibody negative. Influenza testing negative. Rheumatoid factor below 10. Urine tox screen was unremarkable. Urinalysis unremarkable apart from low specific gravity. LDH low at 121. Transthoracic echocardiogram obtained today showed EF of 55 to 60% with cavity size mildly reduced and wall thickness was normal with no regional wall motion abnormalities. There was trace mitral regurgitation and trace tricuspid regurgitation. There was no pericardial effusion. In comparing with the study from 01/03/19, there was no change. CT angiogram of the chest obtained on 01/21/19, impression: "No acute findings. No PE." HOSPITAL COURSE: Dale Adler is a 18-year-old male who is in his second year studying in [place] and who is being evaluated for cardiac issues for the past several weeks by Dr. Jaime with negative cardiac stress test and transthoracic echocardiogram. He came in to the hospital complaining of chest pressure, rapid heart rate with dizziness, fever, and increased frequency of urination. The patient also has a history of occasional left-sided hand tingling. When he was admitted to the hospitalist service, his temperature was 101.2. The patient underwent an extensive workup including Lyme testing, checking out immune markers, and please note that SANDRA of low levels are still pending but his rheumatoid factor was negative. ESR was unremarkable. He was observed on pvc monitor bed and his pulse rate in the morning was still in the 120s range, went down to the 90s today in the afternoon. The patient's fever did not recur and his microbiology studies, although still pending did not indicate any acute infection apart from may be viral syndrome. The patient was seen by Dr. Stubbs from Cardiology, who recommended discharge home. The patient does not need to be on beta-blockers at the time being for his sinus tachycardia. I questioned with the patient if there is a possibility of anxiety that plays a role. The patient stated that he does not feel overly anxious but it is possible that he is "internalizing it." I recommended for the patient to be discharged home and to follow up with his primary care provider for further issues. The patient is also recommended to follow up with Dr. Yassine Jaime in approximately a couple of weeks. DISPOSITION AT DISCHARGE: Discharge to home. CONDITION ON DISCHARGE: Stable. Please note this is a short summary of the patient's hospital stay, please refer to further medical records for details. CONTINUATION ADDENDUM: PHYSICAL EXAMINATION: At the time of discharge, blood pressure 125/66, heart rate of 99 and regular, respiratory rate 16, oxygen saturation 100% on room air , temperature 98.8. General: The patient is a pleasant 18-year-old male with thin body habitus, who is in no acute distress, alert, awake, oriented x3. HEENT: Head atraumatic, normocephalic. Eyes: Pupils are equal and reactive to light and accommodation. Oropharynx clear. Mucosa moist. Neck: Supple. No JVD. No bruits bilaterally. Cardiovascular: Regular rate, rhythm tachycardia. No murmur. Respiratory: Clear to auscultation bilaterally. Abdomen: Soft and nontender. Bowel sounds present in all 4 quadrants. Extremities: There is no edema. Pulses are +2 bilaterally. No clubbing or cyanosis. Neuro evaluation: Speech is clear. Cranial nerves II through XII grossly intact. Motor strength is 5/5 bilaterally. Psychiatric evaluation: Oriented x3 with no evidence of anxiety or depression. [id number]/[facility] #: [id number] - [id number]/[facility] #: [id number] [facility]
--- NOTE | 2019-01-24 15:07 | DS ---
DISCHARGE SUMMARY: ADDENDUM: DATE OF ADMISSION: 01/21/19 DATE OF DISCHARGE: 01/22/19 PHYSICAL EXAMINATION: At the time of discharge, blood pressure 125/66, heart rate of 99 and regular, respiratory rate 16, oxygen saturation 100% on room air , temperature 98.8. General: The patient is a pleasant 18-year-old male with thin body habitus, who is in no acute distress, alert, awake, oriented x3. HEENT: Head atraumatic, normocephalic. Eyes: Pupils are equal and reactive to light and accommodation. Oropharynx clear. Mucosa moist. Neck: Supple. No JVD. No bruits bilaterally. Cardiovascular: Regular rate, rhythm tachycardia. No murmur. Respiratory: Clear to auscultation bilaterally. Abdomen: Soft and nontender. Bowel sounds present in all 4 quadrants. Extremities: There is no edema. Pulses are +2 bilaterally. No clubbing or cyanosis. Neuro evaluation: Speech is clear. Cranial nerves II through XII grossly intact. Motor strength is 5/5 bilaterally. Psychiatric evaluation: Oriented x3 with no evidence of anxiety or depression. [id number]/[facility] #: [id number] [facility]
== END 2019-01-22 17:00 | disposition home or self-care (01) ==
LOC: ED 13:40 → MED 20:08
PROVIDERS: ADMIT Internal Medicine; ATTEND Internal Medicine
DX: R50.9 Fever, unspecified (principal); R00.0 Tachycardia, unspecified; R07.9 Chest pain, unspecified; R53.83 Other fatigue; R42 Dizziness and giddiness; R94.31 Abnormal electrocardiogram [ECG] [EKG]; F41.9 Anxiety disorder, unspecified; Z79.899 Other long term (current) drug therapy
CPT/HCPCS: 36415; 71046; 71275; 80048; 80053; 80307; 81003; 82550; 83036; 83605; 83615; 83735; 84100; 84439; 84443; 84479; 84484; 85025; 85610; 85652; 85730; 86038; 86140; 86431; 86618; 87040; 93005; 93306; 96360; 96361; 99283; A9270-GY; G0378; Q9967